=== PATIENT | female | born 1995 | race Caucasian/White ===

== ENCOUNTER → 2019-08-08 07:55 | Outpatient (BNVA) | payer MEDICARE, MEDICAID, SELFPAY | PROVIDERS: Family Provider Family Medicine; PCP Family Medicine; Visit Provider Psychiatry & Neurology Psychiatry | DX: F31.9 Bipolar disorder, unspecified (principal); F39 Unspecified mood [affective] disorder; G47.00 Insomnia, unspecified; E63.9 Nutritional deficiency, unspecified; Z79.899 Other long term (current) drug therapy; F41.1 Generalized anxiety disorder | CPT/HCPCS: 99205 ==

== ENCOUNTER 2019-08-13 08:47 | Outpatient (CLI) | payer MEDICARE, MEDICAID, SELFPAY ==
[2019-08-13 09:16] LABS: Basophils % 0.2 %; Eosinophils # 0.1 10^3/uL (0.0-0.8); Eosinophils % 2.2 %; Hematocrit 35.7 % (37.0-47.0); Hemoglobin 11.4 g/dL (11.5-15.3); Lymphocytes % 45.1 %; Mean Corpuscular HGB Conc 31.9 g/dL (30.0-36.0); Mean Corpuscular Hemoglobin 30.8 pg (28.0-34.0); Mean Corpuscular Volume 96.5 fL (81-99); Mean Platelet Volume 11.1 fL (7.4-10.4); Monocytes # 0.4 10^3/uL (0.2-0.9); Monocytes % 8.1 %; Neutrophils % 44.2 %; Nucleated Red Blood Cells % 0 %; Platelet Count 151 10^3/cmm (130-400); Red Cell Distribution Width 12.5 % (12.1-15.1); White Blood Count 4.5 10^3/uL (4.0-10.0)
[2019-08-13 09:38] LABS: Estmated Average Glucose 105; Hemoglobin A1C 5.3 % (4.0-6.0)
[2019-08-13 09:41] LABS: Alanine Aminotransferase 13 U/L (0-33); Albumin Level 3.6 g/dL (3.5-5.2); Alkaline Phosphatase 50 IU/L (35-105); Anion Gap 11.8 (5-19); Aspartate Amino Transferase 13 U/L (0-32); Blood Urea Nitrogen 8 mg/dL (6-20); Calcium 9.8 mg/dL (8.5-10.5); Carbon Dioxide 25 mmol/L (22-29); Chloride 106 mmol/L (98-107); Chol HDL Ratio 2.15 mg/dL (0.0-4.40); Cholesterol 144 mg/dL (0-200); Free T4 Free Thyroxine 1.33 ng/dL (0.82-1.77); Globulin 2.7 g/dL (1.3-4.6); Glomerular Filtration Rate 89.7 mL/min (90-130); Glucose 83 mg/dL (65-115); HDL Cholesterol 67 mg/dL (60-100); LDL Cholesterol Calculated 59 mg/dL (50-129); LDL HDL Ratio 0.88 RATIO (0.00-3.22); Magnesium 1.9 mg/dL (1.7-2.3); Osmolality Calculated 283 mOsm/kg (285-295); Potassium 3.8 mmol/L (3.5-5.1); Sodium 139 mmol/L (136-145); T3 Free 2.7 PG/ML (2.0-4.4); Thyroid Stimulating Hormone 2.64 uIU/mL (0.27-4.20); Total Bilirubin 0.2 mg/dL (0.15-1.2); Total Protein 6.3 g/dL (6.6-8.7); Triglycerides 92 mg/dL (0-150); Valproic Acid Level 58.8 mcg/mL (50-100)
[2019-08-13 09:48] LABS: Lithium 1.1 mmol/L (0.6-1.2)
[2019-08-13 10:07] LABS: 25 Hydroxy Vitamin D 44 ng/mL (30-100)
[2019-08-13 10:36] LABS: Vitamin B12 521 pg/mL (232-1245)
[2019-08-13 12:05] LABS: Amphetamines Screen Urine Negative (Negative); Barbiturates Screen Urine Negative (Negative); Benzodiazepines Screen Urine Negative (Negative); Cocaine Screen Urine Negative (Negative); Opiate Screen Urine Negative (Negative); PCP Screen Urine Negative (Negative); THC Screen Urine Negative (Negative)
[2019-08-16 18:57] LABS: Copper Level 208 mcg/dL (70-175)
[2019-08-16 22:37] LABS: Zinc Level, Serum or Plasma 48 mcg/dL (60-130)
== END 2019-08-13 08:48 | disposition home or self-care (01) ==
LOC: LAB 08:51
PROVIDERS: Family Provider Family Medicine; PCP Nurse Practitioner Family; Visit Provider Psychiatry & Neurology Psychiatry
DX: E63.9 Nutritional deficiency, unspecified (principal); F31.9 Bipolar disorder, unspecified; Z79.899 Other long term (current) drug therapy; F39 Unspecified mood [affective] disorder
CPT/HCPCS: 36415; 80053; 80061; 80164; 80178; 80306; 82306; 82525; 82607; 82746; 83036; 83735; 84439; 84443; 84481; 84630; 85025

== ENCOUNTER → 2019-08-22 07:54 | Outpatient (BNVA) | payer MEDICARE, MEDICAID, SELFPAY | PROVIDERS: Family Provider Family Medicine; PCP Nurse Practitioner Family; Visit Provider Psychiatry & Neurology Psychiatry | DX: F84.9 Pervasive developmental disorder, unspecified (principal); F34.9 Persistent mood [affective] disorder, unspecified | CPT/HCPCS: 99214 ==

== ENCOUNTER 2019-10-21 19:29 | Emergency (ER) | payer MEDICARE, MEDICAID, SELFPAY ==
[2019-10-21 19:33] VITALS: BP 152/91; PULSE 96; RESP 18; TEMP 37.2; O2SAT 99; BMI 29.0
== END 2019-10-21 20:59 | disposition left against medical advice (07) ==
LOC: ER 20:10
PROVIDERS: Emergency Provider Emergency Medicine; PCP Nurse Practitioner Family
DX: Z53.21 Procedure and treatment not carried out due to patient leaving prior to being seen by health care provider (principal)
CPT/HCPCS: 99281

== ENCOUNTER 2020-02-07 10:34 | Outpatient (RCR) | payer MEDICARE, MEDICAID, SELFPAY | END 2020-02-09 23:59 | disposition home or self-care (01) | LOC: SPT 10:34 | PROVIDERS: PCP Nurse Practitioner Family; Referring Provider Nurse Practitioner Family; Visit Provider Nurse Practitioner Family | DX: M25.552 Pain in left hip (principal) | CPT/HCPCS: 97161 ==

== ENCOUNTER 2020-02-10 06:00 | Outpatient (RCR) | payer MEDICARE, MEDICAID, SELFPAY | END 2020-03-10 23:59 | disposition home or self-care (01) | LOC: SPT 06:00 | PROVIDERS: PCP Nurse Practitioner Family; Referring Provider Nurse Practitioner Family; Visit Provider Nurse Practitioner Family | DX: M25.552 Pain in left hip (principal) | CPT/HCPCS: 97110 ==

== ENCOUNTER 2020-02-19 21:36 | Emergency (ER) | payer MEDICARE, MEDICAID, SELFPAY ==
[2020-02-19 21:47] VITALS: BP 128/85; PULSE 105; RESP 14; TEMP 36.3; O2SAT 98; BMI 28.0
--- NOTE | 2020-02-20 | CTR_ITS ---
PROCEDURE INFORMATION: Exam: CT Head Without Contrast Exam date and time: 02/20/2020 12:01 AM Age: 24 years old Clinical indication: Injury or trauma; Other: Hit head on car door; Blunt trauma (contusions or hematomas); Without loss of consciousness; Dizziness; Additional info: Head injury TECHNIQUE: Imaging protocol: Computed tomography of the head without contrast. Radiation optimization: All CT scans at this facility use at least one of these dose optimization techniques: automated exposure control; mA and/or kV adjustment per patient size (includes targeted exams where dose is matched to clinical indication); or iterative reconstruction. COMPARISON: No relevant prior studies available. RADIATION DOSE METRICS: Total DLP (mGy-cm): 829.7 FINDINGS: Brain: No acute intracranial hemorrhage or mass effect. No definite acute infarct by CT. Cerebral ventricles: Ventricle size is normal for age. Bones/joints: No definite acute skull fracture. Paranasal sinuses: Included paranasal sinuses are essentially clear. Mastoid air cells: No significant acute finding. CT/CT head wo con* [id number] IMPRESSION: 1. No acute intracranial hemorrhage or mass effect. 2. Other findings discussed above. Radiation Dose CTDIVOL = (mGy): DLP = 829.7 (mGy-cm)
[2020-02-20 00:04] VITALS: BP 128/88; PULSE 99; RESP 18; O2SAT 100
--- NOTE | 2020-02-20 00:04 | W.ED.HEATRA ---
HPI - Head Injury General: Chief complaint: Head Injury Stated complaint: hit head, nauseous Time Seen by Provider: 02/20/20 00:00 History of Present Illness: HPI Narrative: Patient is a 24-year-old female comes to the ED after hitting her hand. Patient says injury occurred just prior to arrival. Patient said she hit her head on car door. Denies any loss of consciousness. She felt dizzy and had some nausea afterwards. Now she currently has a headache. Denies any vision changes, weakness to extremities or numbness or tingling to extremities. Associated symptoms: Reports nausea; Deny neck pain or vomiting Review of Systems Const: Denies: fever(s), chills or fatigue Eyes: Denies: change in vision or eye discomfort ENMT: Denies: throat pain, odynophagia, nasal discharge or nasal congestion Card: Denies: chest pain, palpitations, edema, swelling of feet/ankles, dyspnea on exertion or orthopnea Resp: Denies: dyspnea, productive cough or non-productive cough GI: Reports: nausea; Denies: abdominal pain, vomiting, diarrhea, constipation or hematochezia : Denies: flank pain, dysuria or hematuria Musc: Denies: neck pain, back pain or extremity swelling Skin/Breast: Denies: rash or new lesions Neuro: Reports: headache(s); Denies: numbness in extremities or weakness in extremities PFS ED PFSH: Medical History Acne ADHD, predominantly inattentive type Bipolar 1 disorder Huntingtons chorea Insomnia Oppositional defiant disorder of childhood or adolescence Psychotic disorder Social History Current gender identity: Female Female Reproductive History: Date of last menstrual period: 02/19/20 Physical Exam Const: COMMON NORMALS: no acute distress, patient oriented x3 and alert GENERAL APPEARANCE: cooperative and comfortable HENMT: COMMON NORMALS: normocephalic HEAD & SCALP: normocephalic; no Bean's sign and no raccoon eyes FACE & SINUS: normal facial exam and Facial tenderness on exam of face and sinuses on the right periorbital (Mild tenderness above right eyebrow.); no abrasion, no ecchymosis and no erythema MOUTH: Normal oral and palatal mucosa present THROAT: posterior oropharynx normal and uvula midline Eye: COMMON NORMALS: Equal, round and reactive pupils present, EOMs intact bilaterally, conjunctivae normal and normal visual johnson by confrontation PERIORBITAL: periorbital findings normal CONJUNCTIVA: Yes conjunctivae normal PUPIL: Yes Equal, round and reactive pupils present Neck/C-Spine: COMMON NORMALS: supple GENERAL: Yes normal visual inspection Resp: COMMON NORMALS: normal respiratory effort, No retractions, No use of accessory muscles and clear to auscultation bilaterally AUSCULTATION: clear to auscultation bilaterally Cardio: COMMON NORMALS: regular rate, regular rhythm, S1 normal heart sound present, S2 normal heart sound present, No gallops present (Cardio), No clicks present (Cardio), No murmurs present (Cardio) and Peripheral pulses 2+ throughout RATE: regular rate RHYTHM: regular rhythm HEART SOUNDS: S1 normal heart sound present and S2 normal heart sound present PERIPHERAL PULSES: Peripheral pulses 2+ throughout GI: COMMON NORMALS: Normal to inspection, nondistended, normoactive bowel sounds present, Soft to palpation, non-tender and no masses PALPATION: Yes Soft to palpation : COMMON NORMALS: Yes no CVA tenderness BLADDER/KIDNEY EXAM: Yes no CVA tenderness Back/Pelvis: COMMON NORMALS: no CVA tenderness Extremity: COMMON NORMALS: normal to inspection Neuro: COMMON NORMALS: patient oriented x3, CN's II-XII intact bilaterally, moves all extremities, no focal motor deficits and no sensory deficits noted SENSORIUM/ORIENTATION: Yes alert SENSORY EXAM: Yes extremities (intact) MOTOR EXAM: 5/5 motor strength present throughout Skin: GENERAL SKIN EXAM: dry skin Course Vital Signs: Vital signs: Vital Signs Temperature 97.3 F L 02/19/20 21:47 Pulse Rate 99 02/20/20 00:04 Respiratory Rate 18 02/20/20 00:04 Blood Pressure 128/88 02/20/20 00:04 Pulse Oximetry 100 02/20/20 00:04 MDM - Head Injury MDM Narrative: Medical decision making narrative: Patient is a 24-year-old female comes to the ED with headache after she hit her head on a car door. Neuro exam was completely normal. Patient was given 1 g of Tylenol while here in the ED to help with headache. CT of head showed no acute findings. Patient was discharged and told to follow-up with PCP in 7 to 10 days for reevaluation. Return to ED precautions given. Patient understood and agreed with plan. Imaging Data^: CT Head: Attestation: I personally reviewed and interpreted this imaging study as follows: Radiologist's impression: [address] [address] [address] Scan Report Signed Patient: Melinda Rowell Unit #: [id number] : 1995 Age/Sex: 24 / F ADM Date: 02/19/20 Loc: ER Room/Bed: Attending Dr: Ordering Provider/Ordering MD: Julien Lemon Date of Service: 02/20/20 Procedure(s): CT head wo con* [id number] Accession Number(s): [id number] Report Number: [id number] PROCEDURE INFORMATION: Exam: CT Head Without Contrast Exam date and time: 02/20/2020 12:01 AM Age: 24 years old Clinical indication: Injury or trauma; Other: Hit head on car door; Blunt trauma (contusions or hematomas); Without loss of consciousness; Dizziness; Additional info: Head injury TECHNIQUE: Imaging protocol: Computed tomography of the head without contrast. Radiation optimization: All CT scans at this facility use at least one of these dose optimization techniques: automated exposure control; mA and/or kV adjustment per patient size (includes targeted exams where dose is matched to clinical indication); or iterative reconstruction. COMPARISON: No relevant prior studies available. RADIATION DOSE METRICS: Total DLP (mGy-cm): 829.7 FINDINGS: Brain: No acute intracranial hemorrhage or mass effect. No definite acute infarct by CT. Cerebral ventricles: Ventricle size is normal for age. Bones/joints: No definite acute skull fracture. Paranasal sinuses: Included paranasal sinuses are essentially clear. Mastoid air cells: No significant acute finding. CT/CT head wo con* [id number] IMPRESSION: 1. No acute intracranial hemorrhage or mass effect. 2. Other findings discussed above. Radiation Dose CTDIVOL = (mGy): DLP = 829.7 (mGy-cm) Dictated By: Sanjiv Izaguirre MD Signed By: Sanjiv Izaguirre MD Signed Date/Time: 02/20/2046 DD/ Discharge Plan Discharge Patient Disposition: Home Clinical Impression: Minor head trauma Headache Qualifiers: Headache type: post-traumatic Headache chronicity pattern: acute headache Intractability: not intractable Qualified Code(s): G44.319 - Acute post-traumatic headache, not intractable Condition: Stable Prescriptions: No Action loperamide [Imodium A-D] 2 mg capsule 2 mg PO Q6H PRN (Reason: loose stool) Qty: 10 RF: 0 amantadine HCl 100 mg capsule 100 mg PO BID RF: 0 aripiprazole 5 mg tablet 5 mg PO .AM RF: 0 buspirone 5 mg tablet 5 mg PO DAILY RF: 0 clindamycin-benzoyl peroxide 1-5 % gel with pump 1 applic TOPICAL DAILY RF: 0 divalproex 250 mg tablet extended release 24 hr PO QID RF: 0 fluticasone propionate 50 mcg/actuation spray,suspension 2 spray INTRANASAL DAILY RF: 0 acetaminophen 500 mg capsule 1,000 mg PO Q6H PRN (Reason: fever or pain) RF: 0 Januvia 50 mg tablet 50 mg PO .AM RF: 0 levothyroxine 88 mcg capsule 88 mcg PO DAILY RF: 0 lisinopril 10 mg tablet 10 mg PO DAILY RF: 0 lithium carbonate 300 mg capsule 300 mg PO TID RF: 0 ondansetron 4 mg film 4 mg PO Q8H PRN (Reason: nausea and vomiting) RF: 0 quetiapine 400 mg tablet extended release 24 hr 400 mg PO .HS RF: 0 norgestimate-ethinyl estradiol [Tri-Sprintec (28)] 0.18/0.215/0.25 mg-35 mcg (28) tablet 1 tab PO DAILY RF: 0 multivitamin [Tab-A-Raúl] Tablet 1 tab PO QAM RF: 0 levomefolate calcium [L-Methylfolate] 15 mg tablet 15 mg PO DAILY Qty: 30 RF: 2 melatonin 3 mg capsule 6 mg PO .HS RF: 0 Discharge Orders: Discharge Order (Routine); Ordered 02/20/20 Ordered By: Julien Lemon Referrals: Anusha Carlson FNP [Primary Care Provider] - Discharge Diet: Regular Discharge Activity: Resume usual activity Patient Instructions: Headache Activity Restrictions/Additional Instructions: Follow-up with medical provider as directed in 7 to 10 days. Take [id number] Tylenol or ibuprofen for headache. Return to the ER or your medical provider if condition worsens. Please read and understand discharge instructions. If any questions, please ask. Coding Level of Care Code ED Pipe [employer]vers Supervisor for Melvi Pink Exam Comprehensive
== END 2020-02-20 01:05 | disposition home or self-care (01) ==
PROVIDERS: Emergency Provider Physician Assistant; PCP Nurse Practitioner Family
DX: S09.8XXA Other specified injuries of head, initial encounter (principal); G44.319 Acute post-traumatic headache, not intractable; G10 Huntington's disease; W22.09XA Striking against other stationary object, initial encounter
CPT/HCPCS: 12345; 70450; 99281; 99282

== ENCOUNTER 2020-03-11 06:00 | Outpatient (RCR) | payer MEDICARE, MEDICAID, SELFPAY | END 2020-04-10 23:59 | disposition home or self-care (01) | LOC: SPT 06:00 | PROVIDERS: PCP Nurse Practitioner Family; Referring Provider Nurse Practitioner Family; Visit Provider Nurse Practitioner Family | DX: M25.552 Pain in left hip (principal) | CPT/HCPCS: 97110 ==

== ENCOUNTER 2020-06-11 21:59 | Emergency (ER) | payer MEDICARE, MEDICAID, SELFPAY ==
[2020-06-11 22:04] VITALS: BP 140/87; PULSE 92; RESP 18; O2SAT 99; BMI 24.9
--- NOTE | 2020-06-11 22:16 | CTR_ITS ---
PROCEDURE INFORMATION: Exam: CT Head Without Contrast Exam date and time: 06/11/2020 10:20 PM Age: 25 years old Clinical indication: Pain; Visual disturbance; Headache; Additional info: Head injury TECHNIQUE: Imaging protocol: Computed tomography of the head without contrast. Radiation optimization: All CT scans at this facility use at least one of these dose optimization techniques: automated exposure control; mA and/or kV adjustment per patient size (includes targeted exams where dose is matched to clinical indication); or iterative reconstruction. COMPARISON: CT head wo con* [id number] 02/20/2020 12:16 AM RADIATION DOSE METRICS: Total DLP (mGy-cm): 772.7 FINDINGS: Brain: No acute intracranial hemorrhage or mass effect. No definite acute infarct by CT. MRI could be more sensitive/specific for detection, as clinically directed. Cerebral ventricles: Ventricle size is normal for age. Bones/joints: No definite acute skull fracture. Paranasal sinuses: Included paranasal sinuses are essentially clear. Mastoid air cells: No significant acute finding. CT/CT head wo con* [id number] IMPRESSION: 1. No acute intracranial hemorrhage or mass effect. 2. No definite acute infarct by CT, see above. 3. Other findings discussed above. Radiation Dose CTDIVOL = (mGy): DLP = 772.7 (mGy-cm)
--- NOTE | 2020-06-11 22:27 | W.ED.GENADLT ---
HPI - General Adult General: Chief complaint: General Medical Stated complaint: lethargic, blurred vision, body aches Time Seen by Provider: 06/11/20 22:15 Source: patient Mode of arrival: ambulatory Limitations: no limitations History of Present Illness: HPI narrative: 25-year-old female who history of diabetes along with bipolar states she taken all her nighttime medicine tonight and has been having some generalized weakness along with feeling drowsy and having some blurry vision. She denies any focal signs of denies any loss of vision she states her eyelids does feel very heavy and she is having blurriness. Denies any vomiting. Denies any headache. Denies any chest pain. Associated symptoms: Deny chest pain, dyspnea, headache(s), nausea, rash or vomiting Review of Systems Const: Denies: fever(s), chills, body aches or change in appetite Eyes: Reports: change in vision; Denies: blurry vision or eye discomfort ENMT: Denies: throat pain or dental pain Card: Denies: chest pain Resp: Denies: dyspnea GI: Denies: abdominal pain, nausea, vomiting or diarrhea : Denies: dysuria Musc: Denies: neck pain or back pain Skin/Breast: Denies: rash Neuro: Denies: headache(s) Psych: Denies: depression Gabriel/Lymph: Denies: easy bruising All/Imm: Denies: urticaria PFSH ED PFSH: Medical History Acne ADHD, predominantly inattentive type Bipolar 1 disorder Huntingtons chorea Insomnia Oppositional defiant disorder of childhood or adolescence Psychotic disorder Social History Current gender identity: Female Female Reproductive History: Date of last menstrual period: 06/05/20 Physical Exam Const: COMMON NORMALS: no acute distress, patient oriented x3, healthy appearing and alert ORIENTATION/CONSCIOUSNESS: Yes oriented to person, Yes oriented to place and Yes oriented to time HENMT: COMMON NORMALS: normocephalic and atraumatic HEAD & SCALP: normocephalic and atraumatic Eye: COMMON NORMALS: Equal, round and reactive pupils present and EOMs intact bilaterally GENERAL EYE: appearance normal, both eyes and all related structures and normal light reflex VISUAL ACUITY: Yes acuity normal VISUAL CRUM: No peripheral vision loss PUPIL: Yes Equal, round and reactive pupils present DIRECT OPHTHALMOSCOPY: Yes normal light reflex Neck/C-Spine: COMMON NORMALS: full ROM and supple Chest: COMMONS NORMALS: normal inspection of the chest and normal palpation of entire chest wall Resp: COMMON NORMALS: normal respiratory effort, No retractions, No use of accessory muscles and clear to auscultation bilaterally AUSCULTATION: clear to auscultation bilaterally Cardio: COMMON NORMALS: regular rate, regular rhythm and No murmurs present (Cardio) RATE: regular rate RHYTHM: regular rhythm GI: COMMON NORMALS: Normal to inspection, nondistended, normoactive bowel sounds present, Soft to palpation, non-tender and no masses PALPATION: Yes Soft to palpation Extremity: COMMON NORMALS: normal to inspection and full ROM Neuro: COMMON NORMALS: patient oriented x3, moves all extremities and no focal motor deficits SENSORIUM/ORIENTATION: Yes alert, Yes oriented to person, Yes oriented to place and Yes oriented to time CRANIAL NERVES: Yes CN normal except as noted SPEECH: speech normal GAIT: Yes Normal gait present MOTOR EXAM: 5/5 motor strength present throughout OTHER: drowsy Psych: COMMON NORMALS: mental status grossly normal, Normal thought process present and cooperative THOUGHT PROCESS: Normal thought process present Skin: COMMON NORMALS: no rashes or lesions noted and no wounds GENERAL SKIN EXAM: no rashes or lesions noted Course Vital Signs: Vital signs: Vital Signs Pulse Rate 96 06/11/20 23:45 Respiratory Rate 18 06/11/20 23:45 Blood Pressure 131/83 06/11/20 23:45 Pulse Oximetry 97 06/11/20 23:45 MDM - General Adult MDM Narrative: Medical decision making narrative: Melinda presents here with a plan of lethargic and slight blurred vision. Patient's caregiver states she is on multiple meds at night and she is taking all her meds at night. I believe this is more likely a reaction to her medications that she took. She is well-appearing here and her neuro exam shows no focal neuro deficits. Her head CT and blood work are normal. She is stable for discharge informed her caregiver she has any complaints tomorrow they are to return for recheck. Lab Data: Labs: Lab Results 06/11/20 06/11/20 06/11/20 Range/Units 23:30 23:30 23:30 WBC 6.7 (4.0-10.0) 10^3/ uL RBC 3.90 L (4.1-5.3) 10^6/u L Hgb 12.0 (11.5-15.3) g/dL Hct 36.4 L (37.0-47.0) % MCV 93.3 (81-99) fL MCH 30.8 (28.0-34.0) pg MCHC 33.0 (30.0-36.0) g/dL RDW 12.5 (12.1-15.1) % Plt Count 172 (130-400) 10^3/c mm MPV 10.3 (7.4-10.4) fL Neut % (Auto) 44.8 % Lymph % (Auto) 43.7 % [place] % (Auto) 8.9 % Eos % (Auto) 1.7 % Baso % (Auto) 0.6 % Neut # (Auto) 2.99 (1.8-7.7) 10^3/u L Lymph # (Auto) 2.9 (0.8-4.8) 10^3/u L [place] # (Auto) 0.6 (0.2-0.9) 10^3/u L Eos # (Auto) 0.1 (0.0-0.8) 10^3/u L Baso # (Auto) 0.0 (0.0-0.1) 10^3/u L Nucleated RBC % (a uto) 0 % Nucleated RBCs # 0.0 /100WBC Sodium 139 (136-145) mmol/L Potassium 3.7 (3.5-5.1) mmol/L Chloride 107 (98-107) mmol/L Carbon Dioxide 24 (22-29) mmol/L Anion Gap 11.7 (5-19) BUN 8 (6-20) mg/dL Creatinine 0.5 (0.5-0.9) mg/dL GFR Calculation 152.9 H (90-130) mL/min Glucose 77 (65-115) mg/dL POC Glucose (70-110) mg/dL Calculated Osmolal ity 285 (285-295) mOsm/k g Calcium 9.0 (8.5-10.5) mg/dL Total Bilirubin 0.3 (0.15-1.2) mg/dL AST 12 (0-32) U/L ALT 10 (0-33) U/L Alkaline Phosphata se 51 (35-105) IU/L Total Protein 6.0 L (6.6-8.7) g/dL Albumin 3.4 L (3.5-5.2) g/dL Globulin 2.6 (1.3-4.6) g/dL HCG, Qual (Negative) [place] 1.0 (0.6-1.2) mmol/L 06/11/20 06/11/20 Range/Units 23:33 23:40 WBC (4.0-10.0) 10^3/ uL RBC (4.1-5.3) 10^6/u L Hgb (11.5-15.3) g/dL Hct (37.0-47.0) % MCV (81-99) fL MCH (28.0-34.0) pg MCHC (30.0-36.0) g/dL RDW (12.1-15.1) % Plt Count (130-400) 10^3/c mm MPV (7.4-10.4) fL Neut % (Auto) % Lymph % (Auto) % [place] % (Auto) % Eos % (Auto) % Baso % (Auto) % Neut # (Auto) (1.8-7.7) 10^3/u L Lymph # (Auto) (0.8-4.8) 10^3/u L [place] # (Auto) (0.2-0.9) 10^3/u L Eos # (Auto) (0.0-0.8) 10^3/u L Baso # (Auto) (0.0-0.1) 10^3/u L Nucleated RBC % (a uto) % Nucleated RBCs # /100WBC Sodium (136-145) mmol/L Potassium (3.5-5.1) mmol/L Chloride (98-107) mmol/L Carbon Dioxide (22-29) mmol/L Anion Gap (5-19) BUN (6-20) mg/dL Creatinine (0.5-0.9) mg/dL GFR Calculation (90-130) mL/min Glucose (65-115) mg/dL POC Glucose 82 (70-110) mg/dL Calculated Osmolal ity (285-295) mOsm/k g Calcium (8.5-10.5) mg/dL Total Bilirubin (0.15-1.2) mg/dL AST (0-32) U/L ALT (0-33) U/L Alkaline Phosphata se (35-105) IU/L Total Protein (6.6-8.7) g/dL Albumin (3.5-5.2) g/dL Globulin (1.3-4.6) g/dL HCG, Qual Negative (Negative) [place] (0.6-1.2) mmol/L Imaging Data^: CT Head: Attestation: I personally reviewed and interpreted this imaging study as follows: Radiologist's impression: [address] [address] [address] Scan Report Signed Patient: Melinda Rowell Unit #: [id number] : 1995 Age/Sex: 25 / F ADM Date: 06/11/20 Loc: ER Room/Bed: Attending Dr: Ordering Provider/Ordering MD: Tyrese Zhu MD Date of Service: 06/11/20 Procedure(s): CT head wo con* [id number] Accession Number(s): [id number] Report Number: [id number] PROCEDURE INFORMATION: Exam: CT Head Without Contrast Exam date and time: 06/11/2020 10:20 PM Age: 25 years old Clinical indication: Pain; Visual disturbance; Headache; Additional info: Head injury TECHNIQUE: Imaging protocol: Computed tomography of the head without contrast. Radiation optimization: All CT scans at this facility use at least one of these dose optimization techniques: automated exposure control; mA and/or kV adjustment per patient size (includes targeted exams where dose is matched to clinical indication); or iterative reconstruction. COMPARISON: CT head wo con* [id number] 02/20/2020 12:16 AM RADIATION DOSE METRICS: Total DLP (mGy-cm): 772.7 FINDINGS: Brain: No acute intracranial hemorrhage or mass effect. No definite acute infarct by CT. MRI could be more sensitive/specific for detection, as clinically directed. Cerebral ventricles: Ventricle size is normal for age. Bones/joints: No definite acute skull fracture. Paranasal sinuses: Included paranasal sinuses are essentially clear. Mastoid air cells: No significant acute finding. CT/CT head wo con* [id number] IMPRESSION: 1. No acute intracranial hemorrhage or mass effect. 2. No definite acute infarct by CT, see above EKG Data^: EKG 1: Attestation: I personally reviewed and interpreted this EKG as follows: EKG interpretation date: 06/11/20 EKG interpretation time: 22:58 Interpretation: nsr hr [address] or t wave abnormalities qrs 98 qtc 417 Computer generated interpretation: Head CT 06/11/20 22:16 IMPRESSION: 1. No acute intracranial hemorrhage or mass effect. 2. No definite acute infarct by CT, see above. 3. Other findings discussed above. Radiation Dose CTDIVOL = (mGy): DLP = 772.7 (mGy-cm) Discharge Plan Discharge Patient Disposition: Home Clinical Impression: Blurred vision Condition: Stable Prescriptions: No Action loperamide [Imodium A-D] 2 mg capsule 2 mg PO Q6H PRN (Reason: loose stool) Qty: 10 RF: 0 amantadine HCl 100 mg capsule 100 mg PO BID RF: 0 aripiprazole 5 mg tablet 5 mg PO .AM RF: 0 buspirone 5 mg tablet 5 mg PO DAILY RF: 0 clindamycin-benzoyl peroxide 1-5 % gel with pump 1 applic TOPICAL DAILY RF: 0 divalproex 250 mg tablet extended release 24 hr PO QID RF: 0 fluticasone propionate 50 mcg/actuation spray,suspension 2 spray INTRANASAL DAILY RF: 0 acetaminophen 500 mg capsule 1,000 mg PO Q6H PRN (Reason: fever or pain) RF: 0 Januvia 50 mg tablet 50 mg PO .AM RF: 0 levothyroxine 88 mcg capsule 88 mcg PO DAILY RF: 0 lisinopril 10 mg tablet 10 mg PO DAILY RF: 0 lithium carbonate 300 mg capsule 300 mg PO TID RF: 0 ondansetron 4 mg film 4 mg PO Q8H PRN (Reason: nausea and vomiting) RF: 0 quetiapine 400 mg tablet extended release 24 hr 400 mg PO .HS RF: 0 norgestimate-ethinyl estradiol [Tri-Sprintec (28)] 0.18/0.215/0.25 mg-35 mcg (28) tablet 1 tab PO DAILY RF: 0 multivitamin [Tab-A-Raúl] Tablet 1 tab PO QAM RF: 0 levomefolate calcium [L-Methylfolate] 15 mg tablet 15 mg PO DAILY Qty: 30 RF: 2 melatonin 3 mg capsule 6 mg PO .HS RF: 0 Discharge Orders: Discharge ED (Routine); Ordered 06/12/20 Ordered By: Tyrese Zhu Referrals: Anusha Carlson FNP [Primary Care Provider] - 1-3 days Discharge Diet: Advance as tolerated Discharge Activity: Resume usual activity Patient Instructions: Blurred Vision (ED) Coding Level of Care Code ED Painter Touch Up for Chg Fwd Exam Comprehensive
--- NOTE | 2020-06-11 22:51 | ECG_ITS ---
[facility] Test Date: 2020-06-11 Pat Name: Melinda Rowell Department: Room: Gender: Female Leather Grainer: : 1995 Requested By: Tyrese Zhu Order Number: [id number] Josefina MD: Cecy Walton M.D. Measurements Intervals [place] Rate: 93 P: 20 [place]: 158 QRS: 60 QRSD: 98 T: 30 QT: 367 QTc: 456 Interpretive Statements SINUS RHYTHM LOW QRS VOLTAGE IN PRECORDIAL LEADS [QRS DEFLECTION < 1.0 mV IN CHEST LEADS] INCOMPLETE RIGHT BUNDLE BRANCH BLOCK [90+ ms QRS DURATION, TERMINAL R IN V1/V2, 40+ ms S IN I/aVL/V4/V5/V6] No previous ECG available for comparison Electronically Signed On 06-12-2020 22:03:34 HANGER OFF by Cecy Walton M.D. [id number]
--- NOTE | 2020-06-11 23:34 | PC.NURSE ---
Patient blood glucose is 82.
[2020-06-11 23:36] LABS: Glucose Point of Care 82 mg/dL (70-110)
[2020-06-11 23:45] VITALS: BP 131/83; PULSE 96; RESP 18; O2SAT 97
[2020-06-11 23:46] LABS: HCG Qualitative Urine. Negative (Negative)
[2020-06-11 23:47] LABS: Basophils % 0.6 %; Eosinophils # 0.1 10^3/uL (0.0-0.8); Eosinophils % 1.7 %; Hematocrit 36.4 % (37.0-47.0); Lymphocytes # 2.9 10^3/uL (0.8-4.8); Lymphocytes % 43.7 %; Mean Corpuscular Hemoglobin 30.8 pg (28.0-34.0); Mean Corpuscular Volume 93.3 fL (81-99); Mean Platelet Volume 10.3 fL (7.4-10.4); Monocytes # 0.6 10^3/uL (0.2-0.9); Monocytes % 8.9 %; Neutrophils # 2.99 10^3/uL (1.8-7.7); Neutrophils % 44.8 %; Nucleated Red Blood Cells % 0 %; Platelet Count 172 10^3/cmm (130-400); Red Cell Distribution Width 12.5 % (12.1-15.1); White Blood Count 6.7 10^3/uL (4.0-10.0)
[2020-06-12 00:03] LABS: Alanine Aminotransferase 10 U/L (0-33); Albumin Level 3.4 g/dL (3.5-5.2); Alkaline Phosphatase 51 IU/L (35-105); Anion Gap 11.7 (5-19); Aspartate Amino Transferase 12 U/L (0-32); Blood Urea Nitrogen 8 mg/dL (6-20); Carbon Dioxide 24 mmol/L (22-29); Chloride 107 mmol/L (98-107); Creatinine Clr Calc Pharmacy 163.3422; Globulin 2.6 g/dL (1.3-4.6); Glomerular Filtration Rate 152.9 mL/min (90-130); Glucose 77 mg/dL (65-115); Osmolality Calculated 285 mOsm/kg (285-295); Potassium 3.7 mmol/L (3.5-5.1); Sodium 139 mmol/L (136-145); Total Bilirubin 0.3 mg/dL (0.15-1.2)
[2020-06-12 00:37] VITALS: BP 132/80; PULSE 80; RESP 17; O2SAT 98
== END 2020-06-12 00:38 | disposition home or self-care (01) ==
PROVIDERS: Emergency Provider Emergency Medicine; PCP Nurse Practitioner Family
DX: H53.8 Other visual disturbances (principal)
CPT/HCPCS: 36416; 70450; 80053; 80178; 81025; 82962; 85025; 93005; 99283

== ENCOUNTER 2020-07-15 15:44 | Emergency (ER) | payer MEDICARE, MEDICAID, SELFPAY ==
--- NOTE | 2020-07-15 15:57 | ECG_ITS ---
[facility] Test Date: 2020-07-15 Pat Name: Melinda Rowell Department: Room: Gender: Female Chest Pain Coordinator: : 1995 Requested By: Taj Vaca Order Number: [id number] Rocha MD: Ramon Smith M.D. Measurements Intervals [place] Rate: 82 P: 48 [place]: 153 QRS: 67 QRSD: 94 T: 29 QT: 361 QTc: 423 Interpretive Statements SINUS RHYTHM Compared to ECG 06/11/2020 22:58:04 Incomplete right bundle-branch block no longer present Electronically Signed On 07-15-2020 16:57:45 CDT by Ramon Smith M.D. [id number]
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
[2020-07-15 16:17] VITALS: BP 133/96; PULSE 71; RESP 16; TEMP 36.7; O2SAT 97; BMI 32.5
[2020-07-15 16:20] LABS: Basophils % 0.5 %; Eosinophils # 0.1 10^3/uL (0.0-0.8); Eosinophils % 0.8 %; Hematocrit 40.3 % (37.0-47.0); Hemoglobin 12.9 g/dL (11.5-15.3); Lymphocytes # 2.1 10^3/uL (0.8-4.8); Mean Corpuscular Hemoglobin 30.3 pg (28.0-34.0); Mean Corpuscular Volume 94.6 fL (81-99); Mean Platelet Volume 10.5 fL (7.4-10.4); Monocytes # 0.6 10^3/uL (0.2-0.9); Monocytes % 8.1 %; Neutrophils # 4.49 10^3/uL (1.8-7.7); Neutrophils % 61.3 %; Nucleated Red Blood Cells % 0 %; Platelet Count 174 10^3/cmm (130-400); Red Blood Count 4.26 10^6/uL (4.1-5.3); Red Cell Distribution Width 12.3 % (12.1-15.1); White Blood Count 7.3 10^3/uL (4.0-10.0)
[2020-07-15 16:48] LABS: Acetaminophen < 5.0 ug/mL (10-30); Alanine Aminotransferase 11 U/L (0-33); Alcohol Level < 10 mg/dL (0-10); Alkaline Phosphatase 56 IU/L (35-105); Anion Gap 10.8 (5-19); Aspartate Amino Transferase 11 U/L (0-32); Blood Urea Nitrogen 7 mg/dL (6-20); Calcium 9.2 mg/dL (8.5-10.5); Carbon Dioxide 26 mmol/L (22-29); Chloride 103 mmol/L (98-107); Globulin 2.7 g/dL (1.3-4.6); Glomerular Filtration Rate 103.7 mL/min (90-130); Glucose 85 mg/dL (65-115); Osmolality Calculated 279 mOsm/kg (285-295); Potassium 3.8 mmol/L (3.5-5.1); Salicylate < 0.3 mg/dL (3-10); Sodium 136 mmol/L (136-145); Thyroid Stimulating Hormone 2.41 uIU/mL (0.27-4.20); Total Bilirubin 0.3 mg/dL (0.15-1.2); Total Protein 6.7 g/dL (6.6-8.7)
[2020-07-15 16:50] LABS: Add Urine Microscopic? NO; Charge for UA Resulting for Rev
[2020-07-15 17:01] LABS: HCG Qualitative Urine. Negative (Negative)
[2020-07-15 17:07] LABS: Bilirubin Urine Neg (Negative); Blood Urine Neg (Negative); Glucose Urine UA Norm (Normal); Ketones Urine Negative (Negative); Leukocyte Esterase Urine Negative (Negative); Nitrate Urine Negative (Negative); Protein Urine Neg (Negative); Sulfosalicylic Acid Urine Negative (Negative); Urine Appearance Clear (CLEAR); Urine Color Yellow (Yellow); Urobilinogen Urine Norm (Negative); pH Urine 8 (5-7)
[2020-07-15 17:10] LABS: Amphetamines Screen Urine Negative (Negative); Barbiturates Screen Urine Negative (Negative); Benzodiazepines Screen Urine Negative (Negative); Cocaine Screen Urine Negative (Negative); Opiate Screen Urine Negative (Negative); PCP Screen Urine Negative (Negative); THC Screen Urine Negative (Negative)
[2020-07-15 19:32] VITALS: BP 140/92; PULSE 71; RESP 16; TEMP 36.7; O2SAT 98
[2020-07-15 19:59] LABS: Valproic Acid Level 61.9 ug/mL (50-100)
== END 2020-07-15 19:33 | disposition home or self-care (01) ==
PROVIDERS: Emergency Provider Emergency Medicine; PCP Nurse Practitioner Family
DX: F31.9 Bipolar disorder, unspecified (principal); R45.1 Restlessness and agitation; G10 Huntington's disease; Z79.899 Other long term (current) drug therapy
CPT/HCPCS: 36415; 80053; 80164; 80178; 80306; 80307; 81003; 81025; 84443; 85025; 93005; 99284

== ENCOUNTER 2020-08-27 20:39 | Emergency (ER) | payer MEDICARE, MEDICAID, SELFPAY ==
[2020-08-27 20:40] VITALS: BP 144/79; PULSE 103; RESP 16; TEMP 36.6; O2SAT 100
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
[2020-08-27 21:41] VITALS: RESP 17; O2SAT 97
[2020-08-27] MEDS: oxyCODONE-APAP 5-325 mg Tablet 1 TAB PO (21:41)
[2020-08-27] MEDS: ondansetron 4 MG Tablet PO (22:20)
== END 2020-08-27 22:42 | disposition home or self-care (01) ==
PROVIDERS: Emergency Provider Emergency Medicine; PCP Nurse Practitioner Family
DX: S42.021A Displaced fracture of shaft of right clavicle, initial encounter for closed fracture (principal); G10 Huntington's disease; Y30.XXXA Falling, jumping or pushed from a high place, undetermined intent, initial encounter
CPT/HCPCS: 73030; 99283; Q0162

== ENCOUNTER → 2020-09-03 13:44 | Outpatient (BNVA) | payer MEDICARE, MEDICAID, SELFPAY | PROVIDERS: PCP Nurse Practitioner Family; Referring Provider Nurse Practitioner Family; Visit Provider Specialist | DX: S42.021A Displaced fracture of shaft of right clavicle, initial encounter for closed fracture (principal); X58.XXXA Exposure to other specified factors, initial encounter | CPT/HCPCS: 73000 ==

== ENCOUNTER 2020-09-03 17:23 | Outpatient (CLI) | payer MEDICARE, MEDICAID, SELFPAY | END 2020-09-03 17:24 | disposition home or self-care (01) | LOC: SPT 17:25 | PROVIDERS: PCP Nurse Practitioner Family; Visit Provider Specialist | DX: Z46.89 Encounter for fitting and adjustment of other specified devices (principal); M25.552 Pain in left hip | CPT/HCPCS: 97760; L3650 ==

== ENCOUNTER → 2020-09-24 14:19 | Outpatient (BNVA) | payer MEDICARE, MEDICAID, SELFPAY | PROVIDERS: PCP Nurse Practitioner Family; Visit Provider Specialist | DX: S42.021A Displaced fracture of shaft of right clavicle, initial encounter for closed fracture (principal); S42.024A Nondisplaced fracture of shaft of right clavicle, initial encounter for closed fracture | CPT/HCPCS: 73000 ==

== ENCOUNTER 2020-09-27 12:53 | Emergency (ER) | payer MEDICARE, MEDICAID, SELFPAY ==
[2020-09-27 13:18] VITALS: BP 146/89; PULSE 81; RESP 16; TEMP 37.3; O2SAT 98; BMI 30.9
[2020-09-27 13:21] VITALS: BP 146/89; PULSE 103; RESP 18; O2SAT 98
--- NOTE | 2020-09-27 13:33 | W.ED.SKABFB ---
HPI - Skin/Abscess/Foreign Bdy General: Chief complaint: Skin/Abscess/Foreign Body Stated complaint: laceration on lip Time Seen by Provider: 09/27/20 13:27 History of Present Illness: HPI narrative: Patient place piercings on the lower lip area on each side earlier today and they try to remove them but the lip was swelled and is able to get to him. 1 on the right they went in cut trying it thinking that would get it out but lip is still swelling cannot reach the back of the piercing. complaint: foreign body Onset (ago): hour(s) Tetanus up to date: unsure Associated symptoms: Deny chills or fever(s) Review of Systems Const: Denies: fever(s) or chills Musc: Denies: neck pain Skin/Breast: Reports: other (Has 2 piercings that they cannot remove in the lower lip that were placed e) [facility] ED PFSH: Medical History Acne ADHD, predominantly inattentive type Bipolar 1 disorder Huntingtons chorea Insomnia Oppositional defiant disorder of childhood or adolescence Psychotic disorder Social History Current gender identity: Female Female Reproductive History: Date of last menstrual period: 08/04/20 Physical Exam Const: COMMON NORMALS: no acute distress Psych: COMMON NORMALS: mental status grossly normal Skin: OTHER: Has piercing left side the mouth and on the right side of the mouth. These are in the lower lip area below the lip. The one on the left is still intact but swelling is around it cannot reach the back the piercing. The one the right they cut the front off and stem is still and but cannot reach the back because of the swelling. Course Vital Signs: Vital signs: Vital Signs Temperature 99.1 F 09/27/20 13:18 Pulse Rate 81 09/27/20 13:18 Respiratory Rate 16 09/27/20 13:18 Blood Pressure 146/89 09/27/20 13:18 Pulse Oximetry 98 09/27/20 13:18 MDM - Skin/Abscess/Foreign Bdy MDM Narrative: Medical decision making narrative: Patient was instructed use ice to help reduce swelling swelling get to the back the piercings remove them. They are to follow-up if no significant improvement with that. Discharge Plan Discharge Patient Disposition: Home Clinical Impression: Inflammation associated with voluntary body piercing Condition: Stable Prescriptions: No Action (DME) CLAVICLE STRAP See Rx Instructions .Route .MEDSUPPLY Qty: 1 RF: 0 amantadine HCl 100 mg capsule 100 mg PO BID@ RF: 0 buspirone 5 mg tablet 5 mg PO TID@ RF: 0 clindamycin-benzoyl peroxide 1-5 % gel with pump 1 applic TOPICAL DAILY RF: 0 divalproex 250 mg tablet extended release 24 hr 250 mg PO TID@, RF: 0 acetaminophen 500 mg capsule 1,000 mg PO Q6H PRN (Reason: fever or pain) RF: 0 Januvia 50 mg tablet 50 mg PO DAILY@08 RF: 0 levothyroxine 88 mcg capsule 88 mcg PO DAILY@07 RF: 0 lithium carbonate 300 mg capsule 300 mg PO TID@ RF: 0 ondansetron 4 mg film 4 mg PO Q8H PRN (Reason: nausea and vomiting) RF: 0 norgestimate-ethinyl estradiol [Tri-Sprintec (28)] 0.18/0.215/0.25 mg-35 mcg (28) tablet 1 tab PO DAILY@1999 RF: 0 multivitamin Tablet 1 tab PO DAILY@1999 RF: 0 dicyclomine 20 mg tablet 20 mg PO TID@ RF: 0 Banophen 25 mg capsule 25 mg PO BEDTIME@1999 RF: 0 ibuprofen 200 mg Tablet 200 mg PO Q6H PRN (Reason: Pain) RF: 0 aripiprazole 10 mg tablet 10 mg PO DAILY@1999 RF: 0 quetiapine 300 mg tablet extended release 24 hr 300 mg PO DAILY@1999 RF: 0 melatonin 5 mg tablet 10 mg PO BEDTIME@1999 RF: 0 hydrocodone-acetaminophen 5-325 mg tablet 1 tab PO Q6H PRN (Reason: pain) Qty: 20 RF: 0 Discharge Orders: Discharge ED (Routine); Ordered 09/27/20 Ordered By: Fili Randle Referrals: Anusha Carlson, COMPOSITION MIXER [Primary Care Provider] - Patient Instructions: Opioid Safety Activity Restrictions/Additional Instructions: Go home apply ice inside of mouth and outside of mouth every little while to help swelling go down then remove piercings. If unable to remove piercings after 2448 hrs. return to see your primary care provider return here. Coding Level of Care Code ED Long Term Acute Care Registered Nurse for Melvi Pink
== END 2020-09-27 13:42 | disposition home or self-care (01) ==
PROVIDERS: Emergency Provider Nurse Practitioner Family; PCP Nurse Practitioner Family
DX: K13.0 Diseases of lips (principal)
CPT/HCPCS: 99281

== ENCOUNTER 2020-10-19 17:39 | Emergency (ER) | payer MEDICARE, MEDICAID, SELFPAY ==
[2020-10-19 17:47] VITALS: BP 159/110; PULSE 110; RESP 18; TEMP 36.8; O2SAT 98; BMI 30.9
--- NOTE | 2020-10-19 18:57 | PC.NURSE ---
care transferred to this nurse at [id number]
--- NOTE | 2020-10-19 19:26 | ECG_ITS ---
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 Measurements Intervals [place] Rate: 97 P: 48 AK: 144 QRS: 77 QRSD: 84 T: 43 QT: 328 QTc: 417 Interpretive Statements SINUS RHYTHM POSSIBLE LEFT ATRIAL ENLARGEMENT [-0.1mV P WAVE IN V1/V2] POSSIBLE RIGHT VENTRICULAR CONDUCTION DELAY [RSR (QR) IN V1/V2] Compared to ECG 07/15/2020 16:41:39 No significant changes Electronically Signed On 10-20-2020 18:10:50 CDT by Ramon Smith M.D. [id number]
[2020-10-19] MEDS: tetanus-dipt-pertussis 0.5 mL SDV IM (19:35)
--- NOTE | 2020-10-19 20:45 | ED_ITS ---
HPI - Psych General: Chief Complaint: Psychiatric Symptoms Stated Complaint: SELF HARM Time Seen by Provider: 10/19/20 18:47 History of Present Illness: HPI Narrative: 25-year-old female who lives in a senior living environment. She evidently was not getting the attention she wanted earlier today in that setting, so she broke a piece of porcelain furniture, and cut her forearm with a piece of it. She says that she just wanted attention, and wanted the pain to go away . She denies suicidality or homicidality. complaint: other Onset (ago): hour(s) Duration: changing over time History of same: Yes Relieving factors: none Exacerbating factors: none Associated psychiatric symptoms: depression Associated symptoms: Deny auditory hallucinations, visual hallucinations, homicidal ideation or suicidal ideation If self harm: admits thoughts of self harm and has acted on plan Review of Systems Const: Denies: fever(s) or chills Card: Denies: chest pain or palpitations Resp: Denies: dyspnea, productive cough or non-productive cough : Denies: flank pain Neuro: Denies: headache(s) Psych: Denies: visual hallucinations, auditory hallucinations, suicidal ideation or homicidal ideation PFSH ED PFSH: Medical History Acne ADHD, predominantly inattentive type Bipolar 1 disorder Huntingtons chorea Insomnia Oppositional defiant disorder of childhood or adolescence Psychotic disorder Social History Current gender identity: Female Female Reproductive History: Date of last menstrual period: 08/04/20 Physical Exam Const: COMMON NORMALS: no acute distress, patient oriented x3 and alert Eye: COMMON NORMALS: Equal, round and reactive pupils present and EOMs intact bilaterally PUPIL: Yes Equal, round and reactive pupils present Chest: COMMONS NORMALS: normal inspection of the chest Resp: COMMON NORMALS: normal respiratory effort, No use of accessory muscles and clear to auscultation bilaterally AUSCULTATION: clear to auscultation bilaterally Cardio: COMMON NORMALS: regular rate and regular rhythm RATE: regular rate RHYTHM: regular rhythm Extremity: NARRATIVE EXTREMITY EXAM: Superficial laceration of the left forearm measuring 4 inches. Bleeding controlled. Neuro: COMMON NORMALS: patient oriented x3 SENSORIUM/ORIENTATION: Yes alert Course Vital Signs: Vital signs: Vital Signs Temperature 98.3 F 10/19/20 17:47 Pulse Rate 97 10/19/20 21:59 Respiratory Rate 18 10/19/20 21:59 Blood Pressure 166/94 10/19/20 21:59 Pulse Oximetry 97 10/19/20 21:59 MDM - Psych MDM Narrative: Medical decision making narrative: Patient denies suicidality. She is cooperative. Superficial laceration to the forearm is repaired with Steri-Strips and glue. Bleeding is controlled. Tetanus is given. Discharge Plan Discharge Patient Disposition: Home Clinical Impression: Laceration Condition: Stable Prescriptions: No Action (DME) CLAVICLE STRAP See Rx Instructions .Route .MEDSUPPLY Qty: 1 RF: 0 amantadine HCl 100 mg capsule 100 mg PO BID@ RF: 0 buspirone 5 mg tablet 5 mg PO TID@ RF: 0 clindamycin-benzoyl peroxide 1-5 % gel with pump 1 applic TOPICAL DAILY RF: 0 divalproex 250 mg tablet extended release 24 hr 250 mg PO TID@ RF: 0 acetaminophen 500 mg capsule 1,000 mg PO Q6H PRN (Reason: fever or pain) RF: 0 Januvia 50 mg tablet 50 mg PO DAILY@799 RF: 0 levothyroxine 88 mcg capsule 88 mcg PO DAILY@699 RF: 0 lithium carbonate 300 mg capsule 300 mg PO TID@ RF: 0 ondansetron 4 mg film 4 mg PO Q8H PRN (Reason: nausea and vomiting) RF: 0 norgestimate-ethinyl estradiol [Tri-Sprintec (28)] 0.18/0.215/0.25 mg-35 mcg (28) tablet 1 tab PO DAILY@1999 RF: 0 multivitamin Tablet 1 tab PO DAILY@1999 RF: 0 dicyclomine 20 mg tablet 20 mg PO TID@ RF: 0 Banophen 25 mg capsule 25 mg PO BEDTIME@1999 RF: 0 ibuprofen 200 mg Tablet 200 mg PO Q6H PRN (Reason: Pain) RF: 0 aripiprazole 10 mg tablet 10 mg PO DAILY@1999 RF: 0 quetiapine 300 mg tablet extended release 24 hr 300 mg PO DAILY@1999 RF: 0 melatonin 5 mg tablet 10 mg PO BEDTIME@1999 RF: 0 hydrocodone-acetaminophen 5-325 mg tablet 1 tab PO Q6H PRN (Reason: pain) Qty: 20 RF: 0 Discharge Orders: Discharge ED (Routine); Ordered 10/19/20 Ordered By: Kulwinder Alarcon Referrals: Anusha Carlson FNP [Primary Care Provider] - 4-7 days Discharge Diet: Advance as tolerated Discharge Activity: Limit activity as instructed Patient Instructions: Laceration (ED) Activity Restrictions/Additional Instructions: Keep wound dry for 48 hours, then may wash with soap and running water. Do not soak. See your doctor in 7 days for wound check. If Steri-Strips begin to peel, trim them with scissors to skin edge. Coding Level of Care Code ED Photo Retoucher for Zorang Fwd Exam Detailed
[2020-10-19 21:59] VITALS: BP 166/94; PULSE 97; RESP 18; O2SAT 97
[2020-10-20 14:09] LABS: Glucose Point of Care 141 mg/dL (70-110)
== END 2020-10-19 22:02 | disposition home or self-care (01) ==
PROVIDERS: Emergency Provider Emergency Medicine; PCP Nurse Practitioner Family
DX: S51.812A Laceration without foreign body of left forearm, initial encounter (principal); X78.0XXA Intentional self-harm by sharp glass, initial encounter; Z23 Encounter for immunization
CPT/HCPCS: 12004; 36416; 82962; 90471; 90715; 93005; 99284

== ENCOUNTER 2020-10-26 03:49 | Emergency (ER) | payer MEDICARE, MEDICAID, SELFPAY ==
[2020-10-26 03:57] VITALS: BP 140/92; PULSE 96; RESP 16; TEMP 36.7; O2SAT 99; BMI 30.9
[2020-10-26 06:01] VITALS: BP 142/79; PULSE 86; RESP 18; TEMP 36.8; O2SAT 95
[2020-10-26] MEDS: ketorolac 10 mg Tablet PO (06:13)
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
== END 2020-10-26 06:19 | disposition home or self-care (01) ==
PROVIDERS: Emergency Provider Emergency Medicine; PCP Nurse Practitioner Family
DX: S30.814A Abrasion of vagina and vulva, initial encounter (principal); X58.XXXA Exposure to other specified factors, initial encounter; Y93.89 Activity, other specified
CPT/HCPCS: 96361; 96374; 99283

== ENCOUNTER 2020-10-27 07:31 | Outpatient (CLI) | payer MEDICARE, MEDICAID, SELFPAY ==
--- NOTE | 2020-10-27 07:41 | US_ITS ---
WS: [id number] ULTRASOUND BREAST BILATERAL TECHNIQUE: Ultrasound bilateral breast focused area of concern. CLINICAL INFORMATION: NIPPLE DISCHARGE COMPARISON: None. FINDINGS: Ultrasound bilateral breasts at the areola. Mild ductal ectasia deep to both areola. No visualized in traductal lesions. This has a benign appearance. No cystic or solid lesions to target for biopsy. No suspicious findings. IMPRESSION: BI-RADS 2 benign Recommend annual screening mammography age 40
== END 2020-10-27 07:32 | disposition home or self-care (01) ==
LOC: RAD 07:36
PROVIDERS: PCP Nurse Practitioner Family; Visit Provider Nurse Practitioner Family
DX: N64.52 Nipple discharge (principal)
CPT/HCPCS: 73000; 76642

== ENCOUNTER 2020-11-28 17:49 | Emergency (ER) | payer MEDICARE, MEDICAID, SELFPAY ==
[2020-11-28 18:08] VITALS: BP 154/101; PULSE 111; RESP 19; TEMP 37.1; O2SAT 96
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
[2020-11-28 18:50] VITALS: RESP 19; TEMP 37.1; O2SAT 96
== END 2020-11-28 18:51 | disposition home or self-care (01) ==
PROVIDERS: Emergency Provider Nurse Practitioner Family; PCP Nurse Practitioner Family
DX: S91.104A Unspecified open wound of right lesser toe(s) without damage to nail, initial encounter (principal); W20.8XXA Other cause of strike by thrown, projected or falling object, initial encounter
CPT/HCPCS: 99281

== ENCOUNTER → 2020-12-02 13:26 | Outpatient (BNVA) | payer MEDICARE, MEDICAID, SELFPAY | PROVIDERS: PCP Nurse Practitioner Family; Visit Provider Obstetrics & Gynecology | DX: Z72.51 High risk heterosexual behavior (principal); N93.9 Abnormal uterine and vaginal bleeding, unspecified | CPT/HCPCS: 81025; 84146; 84443; 84702; 85025 ==

== ENCOUNTER → 2020-12-10 15:56 | Outpatient (BNVA) | payer MEDICARE, MEDICAID, SELFPAY | PROVIDERS: PCP Nurse Practitioner Family; Visit Provider Specialist | DX: S42.024A Nondisplaced fracture of shaft of right clavicle, initial encounter for closed fracture (principal) | CPT/HCPCS: 73000 ==

== ENCOUNTER → 2020-12-11 14:16 | Outpatient (BNVA) | payer MEDICARE, MEDICAID, SELFPAY | PROVIDERS: PCP Nurse Practitioner Family; Visit Provider Obstetrics & Gynecology | DX: N93.9 Abnormal uterine and vaginal bleeding, unspecified (principal) | CPT/HCPCS: 76830; 84146 ==

== ENCOUNTER → 2021-01-30 10:08 | Outpatient (BNVA) | payer MEDICARE, MEDICAID, SELFPAY | PROVIDERS: PCP Nurse Practitioner Family; Visit Provider Obstetrics & Gynecology | DX: N84.0 Polyp of corpus uteri (principal); N93.9 Abnormal uterine and vaginal bleeding, unspecified | CPT/HCPCS: 87635 ==

== ENCOUNTER 2021-02-04 08:05 | Day surgery (SDC) | payer MEDICARE, MEDICAID, SELFPAY ==
[2021-02-02 12:07] VITALS: BMI 34.1
[2021-02-02 12:21] LABS: OR HCG Qualitative Urine Negative (Negative)
--- NOTE | 2021-02-02 12:54 | ANES.PREANE2 ---
Pre-Anesthetic Assessment Pre-Anesthetic Assessment: Height/Weight: Height 1.65 m Weight 92.986 kg Preop Diagnosis: Abnormal uterine bleeding due to endometrial polyp, endometrial polyp Proposed Procedure: Operation Date: 02/04/21 09:40 Proposed Procedures p Hysteroscopy with polpectomy 45385 N93.9 N84.0(Not Applicable) - Vadim Silverman MD s Dilation And Curettage (D&C)(Not Applicable) - Vadim Silverman MD Was Beta Poly taken within 24 hours: N/A Was Clonidine taken within 24 hours: N/A Social: Social History: No tobacco Exam: Pre-Anes Outpt Exam: alert, oriented x 3, clear to auscultation bilaterally and regular rate & rhythm Airway: Submandibular: WNL Cervical ROM: WNL MP: 2 History/ROS: No significant complaints Neuropsych: Neuropsych: Anxiety and Bipolar Anesthetic Plan: ASA status: 2 Anesthesia: Anesthesia Evaluation and General Risk of > 500 ml blood loss (7ml/kg in children): No PFSH Anesthesia PFSH: Medical History Acne ADHD, predominantly inattentive type Bipolar 1 disorder Huntingtons chorea Insomnia Oppositional defiant disorder of childhood or adolescence Psychotic disorder Family History Grandmother Diabetes maternal Breast cancer Grandfather Diabetes maternal Denies family history of Colon cancer Ovarian cancer Clotting disorder Bleeding disorder Hypertension Uterine cancer Thyroid disease Stroke Social History Smoking and tobacco status: never smoked Alcohol intake: never Substance/Drug Use: never Current gender identity: Female Female Reproductive History: Date of last menstrual period: 01/23/21 Data Anesthesia Other Labs: Laboratory Results - last 48 hr 02/02/21 11:56 Urine HCG, Qual Negative Cardiac Studies: No Data to Display
[2021-02-02 14:23] LABS: Add Urine Microscopic? NO; Charge for UA Resulting for Rev
[2021-02-02 14:26] LABS: Basophils % 0.5 %; Eosinophils # 0.1 10^3/uL (0.0-0.8); Eosinophils % 1.5 %; Hematocrit 36.6 % (37.0-47.0); Hemoglobin 11.8 g/dL (11.5-15.3); Lymphocytes # 1.7 10^3/uL (0.8-4.8); Lymphocytes % 27.4 %; Mean Corpuscular HGB Conc 32.2 g/dL (30.0-36.0); Mean Corpuscular Hemoglobin 30.3 pg (28.0-34.0); Mean Corpuscular Volume 93.8 fl (81-99); Mean Platelet Volume 11.3 fL (7.4-10.4); Monocytes # 0.5 10^3/uL (0.2-0.9); Monocytes % 8.7 %; Neutrophils # 3.81 10^3/uL (1.8-7.7); Neutrophils % 61.4 %; Nucleated Red Blood Cells % 0 %; Platelet Count 185 10^3/cmm (130-400); Red Cell Distribution Width 12.3 % (12.1-15.1); White Blood Count 6.2 10^3/uL (4.0-10.0)
[2021-02-02 14:35] LABS: Bilirubin Urine Neg (Negative); Blood Urine Neg (Negative); Glucose Urine UA Norm (Normal); Ketones Urine Negative (Negative); Leukocyte Esterase Urine Negative (Negative); Nitrate Urine Negative (Negative); Protein Urine Neg (Negative); Urine Appearance Clear (CLEAR); Urine Color Yellow (Yellow); Urobilinogen Urine Norm (Negative); pH Urine 7 (5-7)
[2021-02-02 14:43] LABS: Anion Gap 14.3 (5-19); Blood Urea Nitrogen 9 mg/dL (6-20); Calcium 9.1 mg/dL (8.5-10.5); Carbon Dioxide 25 mmol/L (22-29); Chloride 102 mmol/L (98-107); Glomerular Filtration Rate 152.9 mL/min (90-130); Glucose 203 mg/dL (65-115); Osmolality Calculated 288 mOsm/kg (285-295); Potassium 4.3 mmol/L (3.5-5.1); Sodium 137 mmol/L (136-145)
[2021-02-04 08:32] VITALS: BP 127/82; PULSE 92; RESP 18; TEMP 36.3; O2SAT 97
--- NOTE | 2021-02-04 08:48 | P.ANESUD_ITS ---
Pre-Anesthetic Update Pre-Anesthetic Assessment: Date of Surgery/Procedure: 02/04/21 Preop Paulina gnosis: Abnormal uterine bleeding due to endometrial polyp, endometrial polyp Proposed Procedure: Operation Date: 02/04/21 09:40 Proposed Procedures p Hysteroscopy with polpectomy 27513 N93.9 N84.0(Not Applicable) - Vadim Silverman MD s Dilation And Curettage (D&C)(Not Applicable) - Vadim Silverman MD Any changes to Pre-Anesthetic Assessment?: No Last Intake: Intake Last Liquid Date 02/03/21 Last Liquid Time 22:00 Last Solid Date 02/03/21 Last Solid Time 19:00 Labs Last 48hrs: Laboratory Results - last 48 hr 02/02/21 02/02/21 02/02/21 11:56 12:15 12:20 WBC RBC Hgb Hct MCV MCH MCHC RDW Plt Count MPV Neut % (Auto) Lymph % (Auto) [place] % (Auto) Eos % (Auto) Baso % (Auto) Neut # (Auto) Lymph # (Auto) [place] # (Auto) Eos # (Auto) Baso # (Auto) Nucleated RBC % (a uto) Nucleated RBCs # Sodium Potassium Chloride Carbon Dioxide Anion Gap BUN Creatinine GFR Calculation Glucose Calculated Osmolal ity Calcium Urine Color Yellow Urine Appearance Clear Urine pH 7 Ur Specific Gravit y 1.000 L Urine Protein Neg Urine Glucose (UA) Norm Urine Ketones Negative Urine Blood Neg Urine Nitrate Negative Urine Bilirubin Neg Urine Urobilinogen Norm Ur Leukocyte Shaniqua ase Negative Urine HCG, Qual Negative Blood Type A Negative Rho(D) Type Negative Antibody Screen Negative 02/02/21 02/02/21 12:20 12:20 WBC 6.2 RBC 3.90 L Hgb 11.8 Hct 36.6 L MCV 93.8 MCH 30.3 MCHC 32.2 RDW 12.3 Plt Count 185 MPV 11.3 H Neut % (Auto) 61.4 Lymph % (Auto) 27.4 [place] % (Auto) 8.7 Eos % (Auto) 1.5 Baso % (Auto) 0.5 Neut # (Auto) 3.81 Lymph # (Auto) 1.7 [place] # (Auto) 0.5 Eos # (Auto) 0.1 Baso # (Auto) 0.0 Nucleated RBC % (a uto) 0 Nucleated RBCs # 0.0 Sodium 137 Potassium 4.3 Chloride 102 Carbon Dioxide 25 Anion Gap 14.3 BUN 9 Creatinine 0.5 GFR Calculation 152.9 H Glucose 203 H Calculated Osmolal ity 288 Calcium 9.1 Urine Color Urine Appearance Urine pH Ur Specific Gravit y Urine Protein Urine Glucose (UA) Urine Ketones Urine Blood Urine Nitrate Urine Bilirubin Urine Urobilinogen Ur Leukocyte Shaniqua ase Urine HCG, Qual Blood Type Rho(D) Type Antibody Screen Vitals: Temperature 97.4 F L 02/04/21 08:32 Temperature Source Temporal Artery S can 02/04/21 08:32 Pulse Rate 92 02/04/21 08:32 Respiratory Rate 18 02/04/21 08:32 Blood Pressure 127/82 02/04/21 08:32 Blood Pressure [place] n 97 02/04/21 08:32 Pulse Oximetry 97 02/04/21 08:32 Oxygen Delivery Me thod 02/04/21 08:32 Exam: Pre-Anes Outpt Exam: alert, oriented x 3, clear to auscultation bilaterally and regular rate & rhythm Cardiac Studies: No Data to Display
[2021-02-04 08:54] LABS: Glucose Point of Care 111 mg/dL (70-110)
[2021-02-04] MEDS: scopolamine 1.5 Patch 1 PATCH TRANSDERMA (08:55)
[2021-02-04] MEDS: sodium chloride 0.9% 500 ML IV (08:57)
--- NOTE | 2021-02-04 09:15 | W.PM.OPSUD ---
Surgery/Procedure H&P Update DATE OF PROCEDURE: February 04, 2021 DATE H&P PERFORMED: 02/02/21 H&P UPDATE INFORMATION: I have reviewed H&P completed within last 30 days, I have examined patient prior to procedure and No changes to prior documentation PREOP DIAGNOSIS: Abnormal uterine bleeding due to endometrial polyp, endometrial polyp PLANNED PROCEDURE: Operation Date: 02/04/21 09:40 Proposed Procedures p Hysteroscopy with polpectomy 25384 N93.9 N84.0(Not Applicable) - Vadim Silverman MD s Dilation And Curettage (D&C)(Not Applicable) - Vadim Silverman MD
[2021-02-04] MEDS: sodium chloride 0.9% 1,000 ML 30 ML IV (09:21)
[2021-02-04] MEDS: midazolam 1 mg/mL INJ 2 mL 2 MG IVP (09:22)
--- NOTE | 2021-02-04 10:08 | PM.OP ---
Operative Report Date of procedure: February 04, 2021 Pre-op Diagnosis: Abnormal uterine bleeding due to endometrial polyp, endometrial polyp Post-op diagnosis: same Post-op Findings: Endometrial polyp. Irregular proliferative endometrium Procedure Done: Hysteroscopic polypectomy and curettage via MyoSure Specimens removed/disposition: Endometrium curettings and polyp Surgeon: Vadim Silverman MD Anesthesia: General IV fluids (mL): 800 Urine output (mL): 100 Complications: None Findings: Irregular endometrium Condition: stable Disposition: PACU Procedure: After informed consent, the risks included but were not limited to bleeding, infection, injury to internal organs. The patient was counseled on a possible laparotomy and on the potential need for hysterectomy. The patient expressed understanding of the risks involved, all questions were answered, and the patient consented to the procedure. The patient was taken to the operating room where general anesthesia was administered. She was placed in the dorsal lithotomy position and prepped and draped in sterile fashion. A time out procedure was performed. The patient was examined under anesthesia and found to have a normal uterus with normal adnexa. A sterile weight speculum was placed in the vagina. The uterus was then gently sounded to 7 cm, and the cervix was dilated. The 0 degrees MyoSure hysteroscope was advanced gently to the uterine fundus while visualizing the monitor. Survey of the uterine cavity showed: Small anterior wall polyp and irregular endometrium, the fundus shows irregular proliferative endometrium; left ostium was visualized, and lateral wall with irregular endometrium; right ostium visualized, and lateral wall with irregular endometrium; anterior and posterior sarkar are with proliferative irregular endometrium; endocervical canal is normal. The MyoSure device was advanced and the direct visualization the polyp and endometrium was morcellated without complication. At the end of morcellation the fluid deficit was 415 mL and was estimated at approximately 200 mL were on the floor. There was minimal bleeding noted and the tenaculum removed with goad hemostasis noted. The patient tolerated the procedure well. The patient was taken to the recovery area in stable condition.
[2021-02-04 10:15] VITALS: BP 133/70; PULSE 68; RESP 16; TEMP 36.2; O2SAT 98
[2021-02-04 10:20] VITALS: BP 136/81; PULSE 107; RESP 16; TEMP 36.3; O2SAT 98
[2021-02-04 10:26] VITALS: BP 136/68; PULSE 103; RESP 18; TEMP 36.6; O2SAT 99
[2021-02-04 10:54] VITALS: BP 133/77; PULSE 100; RESP 18; TEMP 36.6; O2SAT 97
--- NOTE | 2021-02-04 15:47 | ANE.PACU2 ---
Inpatient post-anesthesia follow up: Airway intact: Yes Vital signs: Temperature 97.8 F Pulse Rate 100 Respiratory Rate 18 Blood Pressure 133/77 Pulse Oximetry 97 Oxygen Delivery Me thod Room Air Oxygen Flow Rate Fraction of Inspir ed Oxygen Hydration adequate: Yes Nausea and vomiting: No Pain level: 2 Mental status: Baseline
== END 2021-02-04 10:56 | disposition home or self-care (01) ==
PROVIDERS: PCP Nurse Practitioner Family; Visit Provider Obstetrics & Gynecology
PROC: (CPT 58120; 2021-02-04 09:40)
PROC: 0UDB8ZZ Extraction of Endometrium, Via Natural or Artificial Opening Endoscopic (ICD-10-PCS; CPT 58558; 2021-02-04 09:40)
DX: N93.9 Abnormal uterine and vaginal bleeding, unspecified (principal); N84.0 Polyp of corpus uteri; Z79.899 Other long term (current) drug therapy
CPT/HCPCS: 58558; 36415; 36416; 80048; 81003; 81025; 82962; 84703; 85025; 86850; 86900; 88305; 96365; J0690; J1885; J2250; J2405; J2704; J3010; J7030; J7040

== ENCOUNTER 2021-02-06 09:11 | Outpatient (CLI) | payer MEDICARE, MEDICAID, SELFPAY ==
--- NOTE | 2021-02-06 09:20 | MM_ITS ---
WS: [id number] Exam: [place] [id number] Date/Time of Exam: 02/06/2021 9:21 AM Reason For Exam: SCREEN VIEWS: MLO and CC views both breasts. No comparisons. Findings: There was no sign of mass, architectural distortion or suspicious calcification in either breast. He terogeneously dense MM/[place] [id number] Impression: BI-RADS: 2-Benign FOLLOW-UP: 1 Year Follow-up This mammogram was also analyzed by the Computer Aided Detection System R2 Imag e Tapper Hand.
== END 2021-02-06 09:12 | disposition home or self-care (01) ==
PROVIDERS: PCP Nurse Practitioner Family; Visit Provider Nurse Practitioner Family
DX: Z12.31 Encounter for screening mammogram for malignant neoplasm of breast (principal)
CPT/HCPCS: 77067

== ENCOUNTER 2021-03-04 12:00 | Emergency (ER) | payer MEDICARE, MEDICAID, SELFPAY ==
[2021-03-04 12:05] VITALS: BP 137/73; PULSE 104; RESP 18; TEMP 36.8; O2SAT 100; BMI 33.7
--- NOTE | 2021-03-04 12:05 | XRR_ITS ---
PROCEDURE INFORMATION: Exam: XR Chest Exam date and time: 03/04/2021 12:05 PM Age: 25 years old Clinical indication: Pain; Shortness of breath; Angina pectoris; Additional info: Chest pain TECHNIQUE: Imaging protocol: XR of the chest. Views: 1 view. COMPARISON: [place] [id number] 12/10/2020 4:04 PM FINDINGS: Lungs: Unremarkable. No consolidation. Pleural spaces: Unremarkable. No pleural effusion. No pneumothorax. Heart/Mediastinum: Unremarkable. No cardiomegaly. Bones/joints: Unremarkable. XR/XR chest 1V portable [id number] IMPRESSION: No acute findings. Radiation Dose CTDIVOL = (mGy): DLP = (mGy-cm)
--- NOTE | 2021-03-04 12:05 | ECG_ITS ---
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 Measurements Intervals [place] Rate: 101 P: 41 GA: 146 QRS: 92 QRSD: 93 T: 61 QT: 345 QTc: 447 Interpretive Statements SINUS TACHYCARDIA BORDERLINE RIGHT AXIS DEVIATION [QRS AXIS > 90] INCOMPLETE RIGHT BUNDLE BRANCH BLOCK [90+ ms QRS DURATION, TERMINAL R IN V1/V2, 40+ ms S IN I/aVL/V4/V5/V6] Compared to ECG 10/19/2020 19:37:28 Incomplete right bundle-branch block now present Sinus rhythm no longer present Electronically Signed On 03-04-2021 17:43:29 ONLINE EDUCATION MANAGER by Ramon Smith M.D. [email or web address]
--- NOTE | 2021-03-04 12:51 | ED_ITS ---
HPI - General Adult General: Chief complaint: Chest Pain Stated complaint: R SIDED CHEST PAIN Time Seen by Provider: 03/04/21 12:05 History of Present Illness: HPI narrative: CC: Chest Pain HPI: This is a [25] yo patient hx of DM, depression, anxiety, Deidra disease presenting to the ED complaining of acute sudden onset intermittent R sided pressure pain x 1 days WITHOUT radiation to the back or shoulders . No associated with shortness of breath, chest pain or dyspnea on exertion. Pain is not tearing in nature and does not radiate to the back. Pain not associated with vomiting or PO intake. Denies any recent sympathomimetic drug use. Patient denies any cough. Denies palpitations, dysphagia, diaphoresis, radiation of pain to bilateral arms, jaw. Denies F/N/V/D. Patient denies any recent immobility, unilateral leg swelling, or prior PE. Patient denies any orthopnea. Of note, patient had her polyps removed at the end of January under general anesthesia. Onset: 1 days ago Duration: ongoing for the last 1 days Location: home Severity: mild/moderate Review of Systems Narrative: Constitutional: No fever, no chills. HEENT: No vision changes, no sore throat. CV: +chest pain, no palpitations. PULM: No cough, No dyspnea. GI: No abdominal pain, no N/V/D. : No dysuria, no frequency, no hematuria. MSKEL: No arthralgias, no edema. SKIN: No new rashes, no lesions. NEURO: No headache, no focal weakness. HEME: No easy bleeding or bruising. PSYCH: No change in mood or affect. PFS ED PFSH: Medical History (Updated 03/04/21 @ 13:30 by Kylah Campos MD) Acne ADHD, predominantly inattentive type Bipolar 1 disorder Huntingtons chorea Insomnia Oppositional defiant disorder of childhood or adolescence Psychotic disorder Family History Grandmother Diabetes maternal Breast cancer Grandfather Diabetes maternal Denies family history of Colon cancer Ovarian cancer Clotting disorder Bleeding disorder Hypertension Uterine cancer Thyroid disease Stroke Social History Smoking and tobacco status: never smoked Alcohol intake: never Current gender identity: Female Female Reproductive History: Date of last menstrual period: 01/23/21 Physical Exam Narrative: EXAM NARRATIVE: Head: Atraumatic, normocephalic Eyes: PERRL, EOMI, conjunctiva without injection ENT: Throat without erythema, lesions or exudate, MMM NECK: Supple, trachea midline, no JVD LUNGS: LCTA CV: RRR, S1,S2, no murmurs, rubs, gallops. 2+ peripheral pulses in UEs ABDOMEN: Soft, nontender, nondistended, BS x4, no rigidity, no guarding, no rebound EXTREMITY: Normal ROM, no pitting edema, no calf tenderness to palpation SKIN: No rash or erythema NEURO: Awake and alert. No focal motor deficits. PSYCH: Normal mood and affect. Course Vital Signs: Vital signs: Vital Signs Temperature 98.3 F 03/04/21 12:05 Pulse Rate 91 03/04/21 13:31 Respiratory Rate 18 03/04/21 13:31 Blood Pressure 108/81 03/04/21 13:31 Pulse Oximetry 96 03/04/21 13:31 MDM - General Adult MDM Narrative: Medical decision making narrative: [25]yo patient w/ hx of DM, depression, and bipolar disorder, Deidra disease presenting to the ED with evaluation of new onset R sided chest pain lasting for 1 day. HDS, pulse 2+ radially bilaterally, no signs of fluid overload, AAOx3, neuro exam intact. Given History and Exam today I have no suspicion for ACS, Pneumothorax, Pneumonia, Pulmonary Embolus, Tamponade, Aortic Dissection or other emergent problems as a cause for this presentation. Workup: ECG, CXR, CBC, BMP, Troponin, Dimer Interventions: Tyleonol 500mg PRN pain Findings: ECG: No overt evidence of STEMI, hyperacute T waves, localizable STD or T wave inversions. No evidence of Brugada?s sign, delta wave, epsilon wave, significantly prolonged QTc, or malignant arrhythmia. No Q waves. Other Labs unremarkable for emergent problems. CXR: Without PTX, PNA, or widened mediastinum Last Stress Test: never Last Heart Catheterization: never HEART Score: 0 Dimer wnl [2:55] On reassessment, the patient is HDS, no complaints of persistent chest pain in the ED after evaluation. ECG is non-ischemic. Workup today is unremarkable. Doubt ACS/PE or other emergent causes of chest pain. Glucose improved on reassessment Rx: Tylenol 500mg PRN pain Disposition: Discharge. Strict return precautions discussed with the patient with full understanding. Advised patient to follow up promptly with a primary care provider in 24-48 hrs if the patient has persistent symptoms. Given return instructions for any crushing/tearing chest pain, focal weakness, syncope or any new or concerning issues. Lab Data: Labs: Lab Results 03/04/21 03/04/21 03/04/21 13:01 13:01 13:01 WBC 5.9 10^3/uL 10^3/ uL (4.0-10.0) RBC 4.26 10^6/uL 10^6 /uL (4.1-5.3) Hgb 13.0 g/dL g/dL (11.5-15.3) Hct 38.2 % % (37.0-47.0) MCV 89.7 fl fl (81-99) MCH 30.5 pg pg (28.0-34.0) MCHC 34.0 g/dL g/dL (30.0-36.0) RDW 12.0 % L % (12.1-15.1) Plt Count 200 10^3/cmm 10^3 /cmm (130-400) MPV 10.5 fL H fL (7.4-10.4) Neut % (Auto) 60.2 % % Lymph % (Auto) 29.6 % % [place] % (Auto) 8.2 % % Eos % (Auto) 1.2 % % Baso % (Auto) 0.5 % % Neut # (Auto) 3.53 10^3/uL 10^3 /uL (1.8-7.7) Lymph # (Auto) 1.7 10^3/uL 10^3/ uL (0.8-4.8) [place] # (Auto) 0.5 10^3/uL 10^3/ uL (0.2-0.9) Eos # (Auto) 0.1 10^3/uL 10^3/ uL (0.0-0.8) Baso # (Auto) 0.0 10^3/uL 10^3/ uL (0.0-0.1) Nucleated RBC % (a uto) 0 % % Nucleated RBCs # 0.0 /100WBC /100W BC D-Dimer Sodium 136 mmol/L mmol/L (136-145) Potassium 4.2 mmol/L mmol/L (3.5-5.1) Chloride 99 mmol/L mmol/L (98-107) Carbon Dioxide 25 mmol/L mmol/L (22-29) Anion Gap 16.2 (5-19) BUN 5 mg/dL L mg/dL (6-20) Creatinine 0.6 mg/dL mg/dL (0.5-0.9) GFR Calculation 123.9 mL/min mL/m in (90-130) Glucose 218 mg/dL H mg/dL (65-115) Calculated Osmolal ity 286 mOsm/kg mOsm/ kg (285-295) Calcium 8.9 mg/dL mg/dL (8.5-10.5) Urine Color Yellow (Yellow) Urine Appearance Clear (CLEAR) Urine pH 7 (5-7) Ur Specific Gravit y 1.000 L (1.005-1.030) Urine Protein Neg (Negative) Urine Glucose (UA) 4+ H (Normal) Urine Ketones 1+ H (Negative) Urine Blood Neg (Negative) Urine Nitrate Negative (Negative) Urine Bilirubin Neg (Negative) Urine Urobilinogen Norm mg/dL mg/dL (Negative) Ur Leukocyte Shaniqua ase Negative (Negative) 03/04/21 14:12 WBC RBC Hgb Hct MCV MCH MCHC RDW Plt Count MPV Neut % (Auto) Lymph % (Auto) [place] % (Auto) Eos % (Auto) Baso % (Auto) Neut # (Auto) Lymph # (Auto) [place] # (Auto) Eos # (Auto) Baso # (Auto) Nucleated RBC % (a uto) Nucleated RBCs # D-Dimer 0.32 ug/mIFEU ug/ mIFEU (0-0.59) Sodium Potassium Chloride Carbon Dioxide Anion Gap BUN Creatinine GFR Calculation Glucose Calculated Osmolal ity Calcium Urine Color Urine Appearance Urine pH Ur Specific Gravit y Urine Protein Urine Glucose (UA) Urine Ketones Urine Blood Urine Nitrate Urine Bilirubin Urine Urobilinogen Ur Leukocyte Shaniqua ase Discharge Plan Discharge Patient Disposition: Home Clinical Impression: Chest pain, Hyperglycemia Condition: Stable Prescriptions: No Action amantadine HCl 100 mg capsule 100 mg PO BID@, RF: 0 buspirone 5 mg tablet 5 mg PO TID@,, RF: 0 clindamycin-benzoyl peroxide 1-5 % gel with pump 1 applic TOPICAL DAILY RF: 0 divalproex 250 mg tablet extended release 24 hr 250 mg PO TID@ RF: 0 acetaminophen 500 mg capsule 1,000 mg PO Q6H PRN (Reason: fever or pain) RF: 0 Januvia 50 mg tablet 50 mg PO DAILY@0800 RF: 0 levothyroxine 88 mcg capsule 88 mcg PO DAILY@0700 RF: 0 lithium carbonate 300 mg capsule 300 mg PO TID@ RF: 0 ondansetron 4 mg film 4 mg PO Q8H PRN (Reason: nausea and vomiting) RF: 0 norgestimate-ethinyl estradiol [Tri-Sprintec (28)] 0.18/0.215/0.25 mg-35 mcg (28) tablet 1 tab PO DAILY@1999 RF: 0 trazodone 100 mg tablet 100 mg PO DAILY RF: 0 fluticasone propionate [Flonase Allergy Relief] 50 mcg/actuation spray,suspension 2 spray intranasal DAILY RF: 0 ketotifen fumarate [Alaway] 0.025 % (0.035 %) drops 1 drp ophthalmic (eye) BID RF: 0 hydrochlorothiazide 25 mg tablet 25 mg PO DAILY PRN (Reason: fluid retention) RF: 0 triamcinolone acetonide 0.1 % cream 1 applic topical DAILY RF: 0 multivitamin Tablet 1 tab PO DAILY@1999 RF: 0 diphenhydramine HCl [Banophen] 25 mg capsule 25 mg PO BEDTIME@1999 RF: 0 ibuprofen 200 mg Tablet 200 mg PO Q6H PRN (Reason: Pain) RF: 0 quetiapine 300 mg tablet extended release 24 hr 300 mg PO DAILY@1999 RF: 0 melatonin 5 mg tablet 10 mg PO BEDTIME@1999 RF: 0 dicyclomine 20 mg tablet 10 mg PO QID RF: 0 ibuprofen 800 mg tablet 800 mg PO TID PRN (Reason: pain) Qty: 60 RF: 0 Discharge Orders: Discharge ED (Routine); Ordered 03/04/21 Ordered By: Kylah Campos Referrals: Anusha Carlson RESTORATIVE REHAB AIDE [Primary Care Provider] - Discharge Diet: Advance as tolerated Discharge Activity: Resume usual activity Patient Instructions: Diabetes and Diet, Chest Pain (ED) Activity Restrictions/Additional Instructions: Come back to the emergency room if your chest pain worsens, have any fever or chills, worsening shortness of breath, worsening exertional lightheadedness, or any new or concerning complaints. Coding Level of Care Code ED Social Science Research Assistant for Melvi Pink
[2021-03-04] MEDS: sodium chloride 0.9% 1,000 ML 999 ML IV (13:13)
[2021-03-04 13:19] LABS: Basophils % 0.5 %; Eosinophils # 0.1 10^3/uL (0.0-0.8); Eosinophils % 1.2 %; Hematocrit 38.2 % (37.0-47.0); Lymphocytes # 1.7 10^3/uL (0.8-4.8); Lymphocytes % 29.6 %; Mean Corpuscular Hemoglobin 30.5 pg (28.0-34.0); Mean Corpuscular Volume 89.7 fl (81-99); Mean Platelet Volume 10.5 fL (7.4-10.4); Monocytes # 0.5 10^3/uL (0.2-0.9); Monocytes % 8.2 %; Neutrophils # 3.53 10^3/uL (1.8-7.7); Neutrophils % 60.2 %; Nucleated Red Blood Cells % 0 %; Platelet Count 200 10^3/cmm (130-400); Red Blood Count 4.26 10^6/uL (4.1-5.3); White Blood Count 5.9 10^3/uL (4.0-10.0)
[2021-03-04 13:31] VITALS: BP 108/81; PULSE 91; RESP 18; O2SAT 96
--- NOTE | 2021-03-04 13:38 | PC.NURSE ---
Upon arrival into room continous cardiac, BP, and SpO2 monitoring initiated.
[2021-03-04 13:47] LABS: Add Urine Microscopic? NO; Charge for UA Resulting for Rev
[2021-03-04 13:50] LABS: Urine Appearance Clear (CLEAR); Urine Color Yellow (Yellow); pH Urine 7 (5-7)
[2021-03-04 13:51] LABS: Bilirubin Urine Neg (Negative); Blood Urine Neg (Negative); Glucose Urine UA 4+ (Normal); Ketones Urine 1+ (Negative); Leukocyte Esterase Urine Negative (Negative); Nitrate Urine Negative (Negative); Protein Urine Neg (Negative); Urobilinogen Urine Norm (Negative)
[2021-03-04 14:12] LABS: Anion Gap 16.2 (5-19); Blood Urea Nitrogen 5 mg/dL (6-20); Calcium 8.9 mg/dL (8.5-10.5); Carbon Dioxide 25 mmol/L (22-29); Chloride 99 mmol/L (98-107); Glomerular Filtration Rate 123.9 mL/min (90-130); Glucose 218 mg/dL (65-115); Osmolality Calculated 286 mOsm/kg (285-295); Potassium 4.2 mmol/L (3.5-5.1); Sodium 136 mmol/L (136-145)
[2021-03-04 14:31] LABS: D Dimer 0.32 ug/mIFEU (0-0.59)
[2021-03-04 14:57] VITALS: BP 148/89; PULSE 88
[2021-03-04 15:36] VITALS: BP 141/87; PULSE 97; RESP 14; O2SAT 100
[2021-03-05 22:38] LABS: Glucose Point of Care 220 mg/dL (70-110)
== END 2021-03-04 15:28 | disposition home or self-care (01) ==
PROVIDERS: Emergency Provider Emergency Medicine; PCP Nurse Practitioner Family
DX: R07.9 Chest pain, unspecified (principal); R73.9 Hyperglycemia, unspecified
CPT/HCPCS: 36416; 71045; 80048; 81003; 82962; 85025; 85378; 93005; 96360; 99284; J7030

== ENCOUNTER 2021-11-24 11:57 | Outpatient (CLI) | payer MEDICARE, MEDICAID, SELFPAY ==
--- NOTE | 2021-11-24 12:09 | MR_ITS ---
WS: [id number] MRI HEAD WITHOUT CONTRAST TECHNIQUE: Sagittal T1, T2 axial, T2 axial FLAIR, axial and coronal T1 images, axial susceptibility w eighted imaging, axial diffusion weighted images, and coronal T2 images were obtained. High-resolutio n coronal T2 and axial T1 imaging with attention to the pituitary. CLINICAL INFORMATION: BREAST DISCHARGE (N64.52) COMPARISON: CT June 11, 2020 FINDINGS: No evidence of restricted diffusion to suggest acute ischemia. Ventricular system and basal cisterns are patent. No suspicious intracranial signal abnormalities. Normal castro-white differentiation. Lacy l posterior fossa. Normal vascular flow voids at the skull base. No extra-axial fluid collections. No evidence of mass or mass effect. Paranasal sinuses and mastoid air cells are well aerated. No hemosiderin on the susceptibility weighted images. Normal optic chiasm and pituitary infundibulum. Normal cavernous sinuses and Meckel's cave. No visualized sella or suprasellar pituitary lesions. Ga dolinium not administered. Somewhat shallow sella with small volume pituitary tissue for patient this age. Normal optic chiasm and pituitary infundibulum. MR/MR pituitary wo con [id number] IMPRESSION: 1. No evidence of restricted diffusion to suggest acute ischemia. 2. Normal castro-white differentiation. No suspicious intracranial signal abnorm alities.. 3. No visualized sella or suprasellar pituitary lesions. Somewhat shallow sell a with small volume pituitary tissue for patient this age. 4. Normal optic chiasm and pituitary infundibulum. 5. No other significant findings.
== END 2021-11-24 11:58 | disposition home or self-care (01) ==
LOC: RAD 11:58
PROVIDERS: PCP Nurse Practitioner Family; Visit Provider Nurse Practitioner Family
DX: N64.52 Nipple discharge (principal)
CPT/HCPCS: 70551

== ENCOUNTER → 2022-03-21 14:46 | Outpatient (BNVA) | payer MEDICARE, MEDICAID, SELFPAY | PROVIDERS: PCP Nurse Practitioner Family; Visit Provider Registered Nurse Neonatal Intensive Care | DX: J02.9 Acute pharyngitis, unspecified (principal); J06.9 Acute upper respiratory infection, unspecified | CPT/HCPCS: 87071; 87880 ==

== ENCOUNTER 2022-06-05 12:35 | Emergency (ER) | payer MEDICARE, MEDICAID, SELFPAY ==
[2022-06-05 12:54] VITALS: BP 111/77; PULSE 98; TEMP 36.4; O2SAT 99; BMI 30.9
--- NOTE | 2022-06-05 13:17 | W.ED.HA ---
HPI - Headache General: Chief Complaint: Headache Stated Complaint: head pain Time Seen by Provider: 06/05/22 13:16 History of Present Illness: Ms. Rowell is a 26-year-old lady with complex past medical history including Friend's presenting to the emergency department for headache and fever. She reports feeling generally unwell with intermittent fevers for 6 days as well as pain in her head which is pounding in the frontal and right occipital region. Pain was severe enough that she had syncope yesterday while at the grocery store. Denies other focal sources of infection. Intensity symptoms is moderate to severe. Course has persisted. No other specific changes in health, exacerbating, or alleviating factors identified. Onset (ago): day(s) Onset description: gradually Location: frontal and occipital Severity: moderate Quality & Timing: throbbing Exacerbating factors: none Relieving factors: nothing Associated symptoms: Reports fever(s), malaise and syncope Review of Systems General: Reports: 10 or more systems reviewed and unremarkable except in HPI and below Const: Reports: fever(s) and malaise Card: Reports: syncope [facility], [facility] ED PFSH: Medical History Abnormal uterine bleeding (AUB) Acne ADHD, predominantly inattentive type Aftercare following surgery of the genitourinary system Bipolar 1 disorder Huntingtons chorea Insomnia Oppositional defiant disorder of childhood or adolescence Psychotic disorder Surgical History H/O oral surgery Status post hysteroscopic polypectomy 02/04/2021- hysteroscopic polypectomy and curettage via Myosure performed by Dr. Silverman at [facility] Family History Grandmother Diabetes maternal Breast cancer Grandfather Diabetes maternal Denies family history of Colon cancer Ovarian cancer Clotting disorder Bleeding disorder Hypertension Uterine cancer Thyroid disease Stroke Social History Smoking and tobacco status: never smoked Alcohol intake: never Current gender identity: Female Physical Exam Const: COMMON NORMALS: patient oriented x3 and alert GENERAL APPEARANCE: cooperative and well developed HENMT: COMMON NORMALS: normocephalic and atraumatic HEAD & SCALP: normocephalic and atraumatic Eye: COMMON NORMALS: conjunctivae normal CONJUNCTIVA: Yes conjunctivae normal SCLERA: sclerae normal Neck/C-Spine: COMMON NORMALS: supple and no meningeal signs GENERAL: Yes trachea midline Resp: COMMON NORMALS: normal respiratory effort EFFORT & INSPECTION: Yes able to speak in complete sentences Cardio: COMMON NORMALS: regular rate and regular rhythm RATE: regular rate RHYTHM: regular rhythm GI: COMMON NORMALS: Soft to palpation PALPATION: Yes Soft to palpation and No Tenderness to palpation present (GI) Extremity: GENERAL: Yes normal exam except as noted and No edema Neuro: COMMON NORMALS: patient oriented x3, CN's II-XII intact bilaterally and moves all extremities SENSORIUM/ORIENTATION: Yes alert and No Orientation impaired MENINGEAL SIGNS: Yes no meningeal signs Psych: COMMON NORMALS: mental status grossly normal and Normal thought process present THOUGHT PROCESS: Normal thought process present Course Vital Signs: Vital signs: Vital Signs Temperature 97.5 F L 06/05/22 12:54 Pulse Rate 88 06/05/22 16:27 Respiratory Rate 16 06/05/22 16:27 Blood Pressure 118/76 06/05/22 16:27 Pulse Oximetry 99 06/05/22 16:27 Oxygen Delivery Me thod 06/05/22 13:28 MDM - Headache Medical Decision Making 27-year-old lady presenting with headache in the context of underlying neurologic disorder. Exam as above without focal findings. EKG notable for sinus rhythm with normal axis and intervals. No STEMI. Labs notable for leukopenia with neutropenia predominance though normal present range. Mild dehydration on metabolic panel. Procalcitonin negative. No UTI. COVID PCR negative. CT head negative for acute pathology. Patient treated with migraine cocktail. Near complete resolution of headache on reassessment, patient feels significantly improved, no focal neurologic deficits or meningismus. I did offer lumbar puncture and discussed risks and benefits, family is comfortable and patient is comfortable foregoing at this time with strict return precautions. The results of ED evaluation were discussed with the patient including prescriptions and/or symptomatic cares (if applicable) including appropriate and responsible use, followup plan, and return precautions. The patient verbalized understanding and felt safe for discharge. Medical Records I reviewed the patient's medical records. Lab Data I reviewed the patient's lab results. 06/05/22 14:15 06/05/22 14:[address] 06/05/22 13:32 IMPRESSION: No acute intracranial abnormality. Laboratory Results WBC 3.0 10^3/uL (4.0-10.0) L 06/05/22 14:15 RBC 4.23 10^6/uL (4.1-5.3) 06/05/22 14:15 Hgb 12.4 g/dL (11.5-15.3) 06/05/22 14:15 Hct 38.3 % (37.0-47.0) 06/05/22 14:15 MCV 90.5 fl (81-99) 06/05/22 14:15 MCH 29.3 pg (28.0-34.0) 06/05/22 14:15 MCHC 32.4 g/dL (30.0-36.0) 06/05/22 14:15 RDW 13.1 % (12.1-15.1) 06/05/22 14:15 Plt Count 133 10^3/cmm (130-400) 06/05/22 14:15 MPV 9.9 fL (7.4-10.4) 06/05/22 14:15 Neut % (Auto) 26.0 % 06/05/22 14:15 Lymph % (Auto) 60.2 % 06/05/22 14:15 [place] % (Auto) 11.2 % 06/05/22 14:15 Eos % (Auto) 0.0 % 06/05/22 14:15 Baso % (Auto) 1.0 % 06/05/22 14:15 Neut # (Auto) 0.79 10^3/uL (1.8-7.7) L* 06/05/22 14:15 Lymph # (Auto) 1.8 10^3/uL (0.8-4.8) 06/05/22 14:15 [place] # (Auto) 0.3 10^3/uL (0.2-0.9) 06/05/22 14:15 Eos # (Auto) 0.0 10^3/uL (0.0-0.8) 06/05/22 14:15 Baso # (Auto) 0.0 10^3/uL (0.0-0.1) 06/05/22 14:15 Nucleated RBC % (auto) 0 % 06/05/22 14:15 Nucleated RBCs # 0.0 /100WBC 06/05/22 14:15 Sodium 135 mmol/L (136-145) L 06/05/22 14:15 Potassium 4.1 mmol/L (3.5-5.1) 06/05/22 14:15 Chloride 101 mmol/L (98-107) 06/05/22 14:15 Carbon Dioxide 26 mmol/L (22-29) 06/05/22 14:15 Anion Gap 12.1 (5-19) 06/05/22 14:15 BUN 6 mg/dL (6-20) 06/05/22 14:15 Creatinine 0.8 mg/dL (0.5-0.9) 06/05/22 14:15 GFR Calculation 88.1 mL/min (90-130) L 06/05/22 14:15 Glucose 76 mg/dL (65-115) 06/05/22 14:15 POC Glucose 77 mg/dL (70-110) 06/05/22 15:25 Calculated Osmolality 276 mOsm/kg (285-295) L 06/05/22 14:15 Lactate 1.0 mmol/L (0.5-2.2) 06/05/22 14:15 Calcium 9.3 mg/dL (8.5-10.5) 06/05/22 14:15 Total Bilirubin 0.2 mg/dL (0.15-1.2) 06/05/22 14:15 AST 25 U/L (0-32) 06/05/22 14:15 ALT 19 U/L (0-33) 06/05/22 14:15 Alkaline Phosphatase 84 U/L (35-105) 06/05/22 14:15 C-Reactive Protein 36.4 mg/L (0.0-4.9) H 06/05/22 14:15 Total Protein 6.3 g/dL (6.6-8.7) L 06/05/22 14:15 Albumin 3.2 g/dL (3.5-5.2) L 06/05/22 14:15 Globulin 3.1 g/dL (1.3-4.6) 06/05/22 14:15 Procalcitonin 0.10 ng/mL (0-0.5) 06/05/22 14:15 HCG, Qual Negative (Negative) 06/05/22 14:15 Urine Color Straw (Yellow) 06/05/22 13:41 Urine Appearance Clear (CLEAR) 06/05/22 13:41 Urine pH 8 (5-7) H 06/05/22 13:41 Ur Specific [place] 1.010 (1.005-1.030) 06/05/22 13:41 Urine Protein Neg (Negative) 06/05/22 13:41 Urine Glucose (UA) Norm (Normal) 06/05/22 13:41 Urine Ketones Negative (Negative) 06/05/22 13:41 Urine Blood Neg (Negative) 06/05/22 13:41 Urine Nitrate Negative (Negative) 06/05/22 13:41 Urine Bilirubin Neg (Negative) 06/05/22 13:41 Prot Sulfosalicylic Acd Negative (Negative) 06/05/22 13:41 Urine Urobilinogen Norm mg/dL (Negative) 06/05/22 13:41 Ur Leukocyte Esterase Negative (Negative) 06/05/22 13:41 Coronavirus 229E (PCR) Not detected (NOT DETECT) 06/05/22 13:45 SARS-CoV-2 (PCR) Not detected (NOT DETECT) 06/05/22 13:45 Discharge Plan Discharge Patient Disposition: Home Clinical Impression: Headache, Neutropenia Condition: Stable Prescriptions: New Reglan 10 mg tablet 10 mg PO Q6H PRN (Reason: migraine headache) Qty: 20 0RF No Action amantadine HCl 100 mg capsule 100 mg PO BID@08,20 buspirone 5 mg tablet 5 mg PO TID@08,,20 divalproex 250 mg tablet extended release 24 hr 250 mg PO TID@08,12,20 Januvia 50 mg tablet 50 mg PO DAILY@0800 Rx Instructions: With breakfast levothyroxine 88 mcg capsule 88 mcg PO DAILY@0700 lithium carbonate 300 mg capsule 300 mg PO TID@08,12,20 ondansetron 4 mg film 4 mg PO Q8H PRN (Reason: nausea and vomiting) norgestimate-ethinyl estradiol [Tri-Sprintec (28)] 0.18/0.215/0.25 mg-35 mcg (28) tablet 1 tab PO DAILY@1999 trazodone 100 mg tablet 100 mg PO DAILY fluticasone propionate [Flonase Allergy Relief] 50 mcg/actuation spray,suspension 2 spray intranasal DAILY Rx Instructions: administer into each nostril ketotifen fumarate [Alaway] 0.025 % (0.035 %) drops 1 drp ophthalmic (eye) BID Rx Instructions: administer at least 8 hours apart hydrochlorothiazide 25 mg tablet 25 mg PO DAILY PRN (Reason: fluid retention) triamcinolone acetonide 0.1 % cream 1 applic topical DAILY acetaminophen 500 mg capsule 1,000 mg PO Q6H PRN (Reason: fever or pain) Qty: 60 0RF Chloraseptic Max Sore Throat 1.5-33 % spray,non-aerosol 1 spray mucous membrane DAILY PRN (Reason: sore throat) Qty: 118 0RF Rx Instructions: leave on area for 15 seconds then spit out multivitamin Tablet 1 tab PO DAILY@1999 diphenhydramine HCl [Banophen] 25 mg capsule 25 mg PO BEDTIME@1999 ibuprofen 200 mg Tablet 200 mg PO Q6H PRN (Reason: Pain) quetiapine 300 mg tablet extended release 24 hr 300 mg PO DAILY@1999 melatonin 5 mg tablet 10 mg PO BEDTIME@1999 dicyclomine 20 mg tablet 10 mg PO QID ibuprofen 800 mg tablet 800 mg PO TID PRN (Reason: pain) Qty: 60 0RF prednisone 10 mg tablet 60 mg PO DAILY 5 Days Qty: 30 0RF Discharge Orders: Discharge ED (Routine); Ordered 06/05/22 Ordered By: Enrique Eaton Referrals: Anusha Carlson FNP [Primary Care Provider] - Discharge Diet: Usual diet Discharge Activity: Resume usual activity Patient Instructions: Acute Headache (ED), Neutropenia (ED) Activity Restrictions/Additional Instructions: Thank you for visiting the emergency department. You were seen and evaluated for headache. The exact cause of your symptoms is unclear though does not appear to need inpatient management at this time. As discussed your white blood cell count and neutrophil count are low, please follow-up with your primary care provider for repeat labs and further evaluation of this. Return to the emergency department for worsening symptoms, any new neurologic deficits, neck pain, fevers, or anything else that you are concerned about and feel needs emergency department evaluation. Coding Level of Care Code ED Data Collection Specialist for Melvi Pink
[2022-06-05 13:28] VITALS: BP 134/83; PULSE 93; O2SAT 98
--- NOTE | 2022-06-05 13:32 | CTR_ITS ---
PROCEDURE INFORMATION: Exam: CT Head Without Contrast Exam date and time: 06/05/2022 2:54 PM Age: 26 years old Clinical indication: Pain; Headache; Additional info: Headache, syncope TECHNIQUE: Imaging protocol: Computed tomography of the head without contrast. Radiation optimization: All CT scans at this facility use at least one of these dose optimization techniques: automated exposure control; mA and/or kV adjustment per patient size (includes targeted exams where dose is matched to clinical indication); or iterative reconstruction. REPORTING DATA: Count of CT and Cardiac NM exams in prior 12 months: This patient has received 0 known CTs and 0 known cardiac nuclear medicine studies in the 12 months prior to the current study. COMPARISON: CT head wo con* [id number] 06/11/2020 10:48 PM RADIATION DOSE METRICS: Total DLP (mGy-cm): 1072.18 FINDINGS: Brain: Normal. No hemorrhage. No mass effect or midline shift. Cortical sulci and white matter are unremarkable for age. Cerebral ventricles: Unremarkable for age. Paranasal sinuses: Visualized sinuses are unremarkable. No fluid levels. Mastoid air cells: Visualized mastoid air cells are well aerated. Bones/joints: Unremarkable. No acute fracture. Soft tissues: Unremarkable. CT/CT head wo con* [id number] IMPRESSION: No acute intracranial abnormality.
--- NOTE | 2022-06-05 13:33 | ECG_ITS ---
[facility] Test Date: 2022-06-05 Pat Name: Melinda Rowell Department: Room: Gender: Female Labeling Specialist: : 1995 Requested By: Enrique Eaton Order Number: [id number] Josefina MD: Ramon Smith M.D. Measurements Intervals [place] Rate: 94 P: 16 ME: 156 QRS: 80 QRSD: 90 T: 30 QT: 345 QTc: 432 Interpretive Statements SINUS RHYTHM LOW QRS VOLTAGE IN PRECORDIAL LEADS [QRS DEFLECTION < 1.0 mV IN CHEST LEADS] POSSIBLE RIGHT VENTRICULAR CONDUCTION DELAY [RSR (QR) IN V1/V2] Compared to ECG 03/04/2021 12:09:59 Low QRS voltage now present Sinus tachycardia no longer present Incomplete right bundle-branch block no longer present Electronically Signed On 06-05-2022 20:50:37 CONTACT CENTER TEAM LEAD by Ramon Smith M.D. [email or web address]
[2022-06-05 13:55] LABS: Add Urine Microscopic? NO; Charge for UA Resulting for Rev
[2022-06-05 14:08] LABS: Bilirubin Urine Neg (Negative); Blood Urine Neg (Negative); Glucose Urine UA Norm (Normal); Ketones Urine Negative (Negative); Leukocyte Esterase Urine Negative (Negative); Nitrate Urine Negative (Negative); Protein Urine Neg (Negative); Sulfosalicylic Acid Urine Negative (Negative); Urine Appearance Clear (CLEAR); Urine Color Straw (Yellow); Urobilinogen Urine Norm (Negative); pH Urine 8 (5-7)
[2022-06-05 14:30] VITALS: BP 134/83; PULSE 93; O2SAT 93
[2022-06-05] MEDS: sodium chloride 0.9% 1,000 ML 999 ML IV (14:32)
[2022-06-05] MEDS: metoclopramide 5 mg/mL SDV 2 mL 10 MG IVP (14:35)
[2022-06-05] MEDS: ketorolac 30 mg/mL INJ 15 MG IVP (14:35)
[2022-06-05] MEDS: diphenhydrAMINE 50 mg/mL SDV 1mL 12.5 MG IVP (14:35)
[2022-06-05 14:36] LABS: Hematocrit 38.3 % (37.0-47.0); Hemoglobin 12.4 g/dL (11.5-15.3); Lymphocytes # 1.8 10^3/uL (0.8-4.8); Lymphocytes % 60.2 %; Mean Corpuscular HGB Conc 32.4 g/dL (30.0-36.0); Mean Corpuscular Hemoglobin 29.3 pg (28.0-34.0); Mean Corpuscular Volume 90.5 fl (81-99); Mean Platelet Volume 9.9 fL (7.4-10.4); Monocytes # 0.3 10^3/uL (0.2-0.9); Monocytes % 11.2 %; Nucleated Red Blood Cells % 0 %; Platelet Count 133 10^3/cmm (130-400); Red Blood Count 4.23 10^6/uL (4.1-5.3); Red Cell Distribution Width 13.1 % (12.1-15.1)
[2022-06-05 14:49] LABS: HCG, Serum Qual Negative (Negative)
[2022-06-05 15:00] VITALS: BP 137/73; PULSE 89; O2SAT 91
[2022-06-05 15:03] LABS: Alanine Aminotransferase 19 U/L (0-33); Albumin Level 3.2 g/dL (3.5-5.2); Alkaline Phosphatase 84 U/L (35-105); Anion Gap 12.1 (5-19); Aspartate Amino Transferase 25 U/L (0-32); Blood Urea Nitrogen 6 mg/dL (6-20); C Reactive Protein 36.4 mg/L (0.0-4.9); Calcium 9.3 mg/dL (8.5-10.5); Carbon Dioxide 26 mmol/L (22-29); Chloride 101 mmol/L (98-107); Globulin 3.1 g/dL (1.3-4.6); Glomerular Filtration Rate 88.1 mL/min (90-130); Glucose 76 mg/dL (65-115); Osmolality Calculated 276 mOsm/kg (285-295); Potassium 4.1 mmol/L (3.5-5.1); Sodium 135 mmol/L (136-145); Total Bilirubin 0.2 mg/dL (0.15-1.2); Total Protein 6.3 g/dL (6.6-8.7)
[2022-06-05 15:17] LABS: Neutrophils # 0.79 10^3/uL (1.8-7.7); Slide Review Slide Review Perform
[2022-06-05 15:28] LABS: Glucose Point of Care 77 mg/dL (70-110)
[2022-06-05 15:38] LABS: Adenovirus Not Detected (NOT DETECT); Chlamydia Pneumoniae Not Detected (NOT DETECT); Coronavirus 229E,HKU1,NL63,OC4 Not Detected (NOT DETECT); Human Metapneumovirus Not Detected (NOT DETECT); Human Rhinovirus/Enterovirus Not Detected (NOT DETECT); Influenza A Not Detected (NOT DETECT); Influenza A H1 Not Detected (NOT DETECT); Influenza A H1-2009 Not Detected (NOT DETECT); Influenza A H3 Not Detected (NOT DETECT); Influenza B Not Detected (NOT DETECT); Mycoplasma Pneumoniae Not Detected (NOT DETECT); Parainfluenza Virus Type 1 Not Detected (NOT DETECT); Parainfluenza Virus Type 2 Not Detected (NOT DETECT); Parainfluenza Virus Type 3 Not Detected (NOT DETECT); Parainfluenza Virus Type 4 Not Detected (NOT DETECT); Respiratory Syncytial Virus A Not Detected (NOT DETECT); Respiratory Syncytial Virus B Not Detected (NOT DETECT); SARS-COV-2 Not Detected (NOT DETECT)
[2022-06-05 16:27] VITALS: BP 118/76; PULSE 88; RESP 16; O2SAT 99
== END 2022-06-05 16:29 | disposition home or self-care (01) ==
PROVIDERS: Emergency Provider Emergency Medicine; PCP Nurse Practitioner Family
DX: R51.9 Headache, unspecified (principal); D70.9 Neutropenia, unspecified; Z20.822 Contact with and (suspected) exposure to COVID-19; G10 Huntington's disease
CPT/HCPCS: 36416; 70450; 80053; 81003; 82962; 83605; 84145; 84703; 85025; 86140; 87040; 87635; 93005; 96361; 96374; 96375; 99285; J1200; J1885; J2765; J7030

== ENCOUNTER 2022-06-16 08:07 | Emergency (ER) | payer MEDICARE, MEDICAID, SELFPAY ==
[2022-06-16 08:14] VITALS: BP 127/87; PULSE 102; TEMP 36.6; O2SAT 94; BMI 25.7
--- NOTE | 2022-06-16 08:35 | CT_ITS ---
WS: [id number] CT NECK TECHNIQUE: Contrast-enhanced CT of the neck with coronal and sagittal reformatted images. CLINICAL INFORMATION: swelling, difficulty swallowing COMPARISON: None. DLP: 234.[address] scans at [facility] use at least one of these dose optimization techniques: automated e xposure control; mA and/or kV adjustment per patient size (includes targeted exams where dose is matc hed to clinical indication); or iterative reconstruction. FINDINGS: Enlarged heterogeneously enhancing palatine tonsils compatible with tonsillitis. Diffuse prominence w ith heterogeneous enhancement involving the adenoids. Narrowing of the posterior nasopharynx due to a denoid enlargement. Normal parapharyngeal fat. No evidence of tonsillar or peritonsillar drainable ab scess. Soft tissue edema within the posterior nasopharynx and oropharynx. Enhancing RIGHT retropharyn geal lymph node measuring 8 x 10 mm. Diffuse extensive bilateral cervical lymphadenopathy throughout the cervical chains. This involves th e posterior triangle and level 4 lymph nodes extending to the bilateral supraclavicular regions and p artially visualized axilla. This extends to the thoracic inlet. Mild circumferential edema involving the pharynx. Vallecular and piriform sinuses are patent. Normal glottis. Normal subglottic airway. Parotid glands are normal. Submandibular glands are normal. Normal thyroid. Lung apices are well aera abhay. IMPRESSION: 1. Marked enlargement of the adenoids and palatine tonsils with heterogeneous enhancement compatible with tonsillitis. 2. No evidence of drainable peritonsillar or retropharyngeal abscess or fluid collection. Enhancing enlarged RIGHT retropharyngeal lymph node. 3. Mild diffuse circumferential edema involving the nasopharynx, oropharynx, and supraglottic larynx . Normal glottis. 4. Diffuse marked lymphadenopathy throughout all cervical chains extending to the supraclavicular re gions and proximal axilla 5. Mastoid air cells are well aerated. Paranasal sinuses appear well aerated.
--- NOTE | 2022-06-16 08:35 | W.ED.GENADLT ---
HPI - General Adult General: Chief complaint: General Medical Stated complaint: sore throat Time Seen by Provider: 06/16/22 08:22 Source: patient and other (caregiver) Mode of arrival: EMS Limitations: no limitations History of Present Illness: Patient is a 27-year-old female who presents to ED today via EMS along with one of her caregivers for complaints of a left earache, sore throat, and neck pain/swelling. Patient herself is not really able to provide much history due to fairly significant mental disability. She is able to tell me her ear and throat/neck hurts. She is a resident of [facility]. History of [place]'s disease. Caregiver with her is not really able to provide much history either as she states she just came on staff at 8 AM. She is able to review overnight notes from previous caregiver. Apparently patient woke up several times in the middle of the night crying that her throat hurt. There was some documentation that she had trouble swallowing her evening medications secondary to her throat and neck pain. Caregiver feels like her neck is swollen currently. She has not been running fevers. She is on antibiotics for her ear pain (Augmentin). Location: mouth (throat) and neck Severity: moderate Pain Consistency: constant Exacerbating factors: other (swallowing) Associated symptoms: Deny chest pain, dyspnea, headache(s), malaise, nausea, rash or vomiting Treatments prior to arrival: none Review of Systems Const: Denies: fever(s), chills, body aches, fatigue or malaise ENMT: Reports: throat pain, odynophagia and ear or mastoid pain; Denies: uvular edema, ear discharge, change in hearing, tinnitus, disequilibrium, nasal discharge, nasal congestion, post nasal drip or sinus pain Card: Denies: chest pain Resp: Denies: dyspnea GI: Denies: abdominal pain, nausea or vomiting Musc: Reports: neck pain; Denies: back pain, extremity pain or joint pain Skin/Breast: Denies: rash Neuro: Denies: headache(s), numbness in extremities, weakness in extremities, sensory changes or dizziness [facility] ED PFSH: Medical History Abnormal uterine bleeding (AUB) Acne ADHD, predominantly inattentive type Aftercare following surgery of the genitourinary system Bipolar 1 disorder Huntingtons chorea Insomnia Oppositional defiant disorder of childhood or adolescence Psychotic disorder Surgical History H/O oral surgery Status post hysteroscopic polypectomy 02/04/2021- hysteroscopic polypectomy and curettage via Myosure performed by Dr. Silverman at [facility] Family History Grandmother Diabetes maternal Breast cancer Grandfather Diabetes maternal Denies family history of Colon cancer Ovarian cancer Clotting disorder Bleeding disorder Hypertension Uterine cancer Thyroid disease Stroke Social History Smoking and tobacco status: never smoked Alcohol intake: never Current gender identity: Female Physical Exam Const: COMMON NORMALS: no acute distress, alert and well nourished GENERAL APPEARANCE: cooperative OTHER: pt with baseline mental disability/cognitive delays HENMT: COMMON NORMALS: normocephalic, atraumatic, hearing grossly normal bilaterally, external ears normal, EAC's normal, Normal external nose present and gingiva normal HEAD & SCALP: normal to inspection, normocephalic and atraumatic FACE & SINUS: normal facial exam NOSE: Normal external nose present EXTERNAL EAR: Yes external ears normal EXTERNAL AUDITORY CANAL: EAC's normal TYMPANIC MEMBRANE: TM abnormal (bilateral TM scarring/with effusions) MOUTH: lip normal, tongue normal and other (dry mucous membranes; slightly muffled voice) THROAT: other (some bilateral tonsillar hypertropy w/o exudates/erythema); no uvular edema OTHER: dry mucous membranes; post nasal drainage as well as some thick yellow like secretions to posterior pharynx Eye: GENERAL EYE: appearance normal, both eyes and all related structures Neck/C-Spine: COMMON NORMALS: full ROM and no meningeal signs GENERAL: Yes tender (L>R) OTHER: does appear to have some generalized anterior neck swelling although this could just be patient's body habitus; staff with patient feels it is swollen Resp: COMMON NORMALS: normal respiratory effort and clear to auscultation bilaterally AUSCULTATION: clear to auscultation bilaterally Cardio: COMMON NORMALS: regular rate and regular rhythm RATE: regular rate RHYTHM: regular rhythm Extremity: COMMON NORMALS: normal to inspection GENERAL: Yes normal exam except as noted Neuro: RICKI COMA SCALE: document GCS findings Ricki coma scale eye opening: Spontaneous [place] coma scale verbal response: Orientated Ricki coma scale motor response: Obey commands Vivian coma scale total score: 15 COMMON NORMALS: CN's II-XII intact bilaterally, moves all extremities, no focal motor deficits and no sensory deficits noted SENSORIUM/ORIENTATION: Yes alert MENINGEAL SIGNS: Yes no meningeal signs OTHER: at mental baseline per staff Skin: COMMON NORMALS: no rashes or lesions noted GENERAL SKIN EXAM: no rashes or lesions noted Course Vital Signs: Vital signs: Vital Signs Temperature 97.9 F 06/16/22 08:14 Pulse Rate 102 H 06/16/22 08:14 Blood Pressure 127/87 06/16/22 08:14 Pulse Oximetry 94 06/16/22 08:14 Oxygen Delivery Me thod 06/16/22 08:14 MDM - General Adult Medical Decision Making Patient's blood work overall is unremarkable. Strep is negative. CT scan showing large amount of her adenoids and palatine tonsils compatible with tonsillitis. She does have diffuse edema and lymphadenopathy. Patient is already on Amoxicillin I recommend she continue taking this. We will add steroids. Patient was able to take all of her home medications without difficulty. She was able to eat and drink here in the emergency department. Will be allowed discharge with strict return ED precautions given. Lab Data 06/16/22 09:14 06/16/22 09:14 Laboratory Results WBC 6.8 10^3/uL (4.0-10.0) 06/16/22 09:14 RBC 4.28 10^6/uL (4.1-5.3) 06/16/22 09:14 Hgb 12.4 g/dL (11.5-15.3) 06/16/22 09:14 Hct 39.5 % (37.0-47.0) 06/16/22 09:14 MCV 92.3 fl (81-99) 06/16/22 09:14 MCH 29.0 pg (28.0-34.0) 06/16/22 09:14 MCHC 31.4 g/dL (30.0-36.0) 06/16/22 09:14 RDW 13.2 % (12.1-15.1) 06/16/22 09:14 Plt Count 206 10^3/cmm (130-400) 06/16/22 09:14 MPV 8.8 fL (7.4-10.4) 06/16/22 09:14 Lymph % (Auto) Not Reportable 06/16/22 09:14 [place] % (Auto) Not Reportable 06/16/22 09:14 Lymph # (Auto) Not Reportable 06/16/22 09:14 [place] # (Auto) Not Reportable 06/16/22 09:14 Total Counted 100 (0-100) 06/16/22 09:14 Atypical Lymphs % 10.0 % (0-5) H 06/16/22 09:14 Absolute Neutrophils 2.9 10^3/cmm (1.4-6.5) 06/16/22 09:14 Segmented Neutrophils 37 % 06/16/22 09:14 Abs Segm Neuts (Man) 2.5 10/cmm (1.6-7.1) 06/16/22 09:14 Band Neutrophils 5.0 % 06/16/22 09:14 Abs Band Neuts (Man) 0.3 10^3/cmm (0.0-1.2) 06/16/22 09:14 Absolute Lymphocytes 3.3 10^3/cmm (1.2-3.4) 06/16/22 09:14 Lymphocytes (Manual) 38 % 06/16/22 09:14 Monocytes (Manual) 9.0 % 06/16/22 09:14 Absolute Monocytes 0.6 10^3/cmm (0.1-0.6) 06/16/22 09:14 Eosinophils (Manual) 1 % 06/16/22 09:14 Absolute Eosinophils 0.0 10^3/cmm (0.0-0.7) 06/16/22 09:14 Basophils (Manual) Not Reportable 06/16/22 09:14 Platelet Estimate Normal (Normal) 06/16/22 09:14 Polychromasia 1+ H 06/16/22 09:14 Sodium 132 mmol/L (136-145) L 06/16/22 09:14 Potassium 4.3 mmol/L (3.5-5.1) 06/16/22 09:14 Chloride 97 mmol/L (98-107) L 06/16/22 09:14 Carbon Dioxide 23 mmol/L (22-29) 06/16/22 09:14 Anion Gap 16.3 (5-19) 06/16/22 09:14 BUN 7 mg/dL (6-20) 06/16/22 09:14 Creatinine 0.8 mg/dL (0.5-0.9) 06/16/22 09:14 GFR Calculation 87.4 mL/min (90-130) L 06/16/22 09:14 Glucose 93 mg/dL (65-115) 06/16/22 09:14 Calculated Osmolality 272 mOsm/kg (285-295) L 06/16/22 09:14 Calcium 9.2 mg/dL (8.5-10.5) 06/16/22 09:14 Total Bilirubin 0.3 mg/dL (0.15-1.2) 06/16/22 09:14 AST 29 U/L (0-32) 06/16/22 09:14 ALT 27 U/L (0-33) 06/16/22 09:14 Alkaline Phosphatase 102 U/L (35-105) 06/16/22 09:14 Total Protein 7.2 g/dL (6.6-8.7) 06/16/22 09:14 Albumin 3.2 g/dL (3.5-5.2) L 06/16/22 09:14 Globulin 4.0 g/dL (1.3-4.6) 06/16/22 09:14 Group A Strep Rapid Negative (Negative) 06/16/22 08:55 Discharge Plan Discharge Patient Disposition: Home Clinical Impression: Acute tonsillitis Qualifiers: Pharyngitis/tonsillitis etiology: unspecified etiology Qualified Code(s): J03.90 - Acute tonsillitis, unspecified Condition: Stable Prescriptions: New prednisone 10 mg tablet 60 mg PO DAILY 5 Days Qty: 30 0RF No Action amantadine HCl 100 mg capsule 100 mg PO BID@, buspirone 5 mg tablet 5 mg PO TID@,, divalproex 250 mg tablet extended release 24 hr 250 mg PO TID@,, Januvia 50 mg tablet 50 mg PO DAILY@0800 Rx Instructions: With breakfast levothyroxine 88 mcg capsule 88 mcg PO DAILY@0700 lithium carbonate 300 mg capsule 300 mg PO TID@08,12,20 ondansetron 4 mg film 4 mg PO Q8H PRN (Reason: nausea and vomiting) norgestimate-ethinyl estradiol [Tri-Sprintec (28)] 0.18/0.215/0.25 mg-35 mcg (28) tablet 1 tab PO DAILY@1999 trazodone 100 mg tablet 100 mg PO DAILY fluticasone propionate [Flonase Allergy Relief] 50 mcg/actuation spray,suspension 2 spray intranasal DAILY Rx Instructions: administer into each nostril ketotifen fumarate [Alaway] 0.025 % (0.035 %) drops 1 drp ophthalmic (eye) BID Rx Instructions: administer at least 8 hours apart hydrochlorothiazide 25 mg tablet 25 mg PO DAILY PRN (Reason: fluid retention) triamcinolone acetonide 0.1 % cream 1 applic topical DAILY acetaminophen 500 mg capsule 1,000 mg PO Q6H PRN (Reason: fever or pain) Qty: 60 0RF Chloraseptic Max Sore Throat 1.5-33 % spray,non-aerosol 1 spray mucous membrane DAILY PRN (Reason: sore throat) Qty: 118 0RF Rx Instructions: leave on area for 15 seconds then spit out multivitamin Tablet 1 tab PO DAILY@1999 diphenhydramine HCl [Banophen] 25 mg capsule 25 mg PO BEDTIME@1999 ibuprofen 200 mg Tablet 200 mg PO Q6H PRN (Reason: Pain) quetiapine 300 mg tablet extended release 24 hr 300 mg PO DAILY@1999 melatonin 5 mg tablet 10 mg PO BEDTIME@1999 dicyclomine 20 mg tablet 10 mg PO QID ibuprofen 800 mg tablet 800 mg PO TID PRN (Reason: pain) Qty: 60 0RF Reglan 10 mg tablet 10 mg PO Q6H PRN (Reason: migraine headache) Qty: 20 0RF Discharge Orders: Discharge ED (Routine); Ordered 06/16/22 Ordered By: Lisa Dailey Referrals: Anusha Carlson FNP [Primary Care Provider] - Activity Restrictions/Additional Instructions: I am placing patient on 5 days of high-dose steroids to help with inflammation. She needs to continue all of her home medications including her Amoxicillin antibiotic. Patient needs to return to the emergency department for worsening pain or swelling, occultly swallowing, inability to hold down food or drink or her medications, difficulty breathing or any other concerns you may have. Coding Level of Care Code ED Steward/Stewardess Second for Melvi Pink
[2022-06-16 09:10] LABS: Rapid Strep A Test Negative (Negative)
[2022-06-16 09:22] LABS: Hematocrit 39.5 % (37.0-47.0); Hemoglobin 12.4 g/dL (11.5-15.3); Mean Corpuscular HGB Conc 31.4 g/dL (30.0-36.0); Mean Corpuscular Volume 92.3 fl (81-99); Mean Platelet Volume 8.8 fL (7.4-10.4); Platelet Count 206 10^3/cmm (130-400); Red Blood Count 4.28 10^6/uL (4.1-5.3); Red Cell Distribution Width 13.2 % (12.1-15.1); White Blood Count 6.8 10^3/uL (4.0-10.0)
[2022-06-16 09:39] LABS: Alanine Aminotransferase 27 U/L (0-33); Albumin Level 3.2 g/dL (3.5-5.2); Alkaline Phosphatase 102 U/L (35-105); Anion Gap 16.3 (5-19); Aspartate Amino Transferase 29 U/L (0-32); Blood Urea Nitrogen 7 mg/dL (6-20); Calcium 9.2 mg/dL (8.5-10.5); Carbon Dioxide 23 mmol/L (22-29); Chloride 97 mmol/L (98-107); Glomerular Filtration Rate 87.4 mL/min (90-130); Glucose 93 mg/dL (65-115); Osmolality Calculated 272 mOsm/kg (285-295); Potassium 4.3 mmol/L (3.5-5.1); Sodium 132 mmol/L (136-145); Total Bilirubin 0.3 mg/dL (0.15-1.2); Total Protein 7.2 g/dL (6.6-8.7)
[2022-06-16 09:50] LABS: Slide Review Slide Review Perform
[2022-06-16 09:51] LABS: Absolute Neutrophil 2.9 10^3/cmm (1.4-6.5); Absolute Segmented Neutrophil 2.5 10/cmm (1.6-7.1); Band Neutrophils Absolute 0.3 10^3/cmm (0.0-1.2); Eosinophils 1 %; Lymphocytes 38 %; Lymphocytes Absolute 3.3 10^3/cmm (1.2-3.4); Monocytes Absolute 0.6 10^3/cmm (0.1-0.6); Platelet Estimate Normal (Normal); Polychromasia 1+; Segmented Neutrophils 37 %; Total Cells Counted 100 (0-100)
[2022-06-16] MEDS: iohexol 350 mg/mL 500 mL Btl (per mL) IV (11:34)
[2022-06-16] MEDS: dexamethasone 10 mg/mL INJ IVP (12:16)
== END 2022-06-16 12:58 | disposition home or self-care (01) ==
PROVIDERS: Emergency Provider Physician Assistant; PCP Nurse Practitioner Family
DX: J03.90 Acute tonsillitis, unspecified (principal)
CPT/HCPCS: 36415; 70491; 80053; 85007; 85025; 87081; 87880; 96374; 99285; J1100; Q9967

== ENCOUNTER 2022-07-31 20:39 | Emergency (ER) | payer MEDICARE, MEDICAID, SELFPAY ==
[2022-07-31 20:42] VITALS: BP 140/87; PULSE 101; RESP 14; TEMP 36.6; O2SAT 97
[2022-08-01] MEDS: ondansetron 4 MG Tablet PO
[2022-08-01] MEDS: ketorolac 30 mg/mL INJ IM (00:01)
--- NOTE | 2022-08-01 00:13 | W.ED.HA ---
HPI - Headache General: Chief Complaint: Headache Stated Complaint: hit head, LIAO, dizzy Time Seen by Provider: 07/31/22 23:05 Source: patient History of Present Illness: 27-year-old female who struck her head on a refrigerator door earlier in the evening. She is experiencing some dizziness, and headache. She is nauseated. She did not lose consciousness. She has a history of headaches. She has a history of developmental delay. MD elicited complaint: headache Onset (ago): hour(s) Onset description: suddenly Location: occipital Severity: moderate Quality & Timing: aching and throbbing Exacerbating factors: none Relieving factors: nothing Associated symptoms: Reports nausea and photophobia; Deny chest pain, confusion, cough, eye pain, fever(s), loss of vision, neck stiffness or vomiting Treatments prior to arrival: acetaminophen Review of Systems Const: Denies: fever(s) Card: Denies: chest pain GI: Reports: nausea; Denies: vomiting Musc: Denies: neck pain Neuro: Denies: confusion PFSH ED PFSH: Medical History Abnormal uterine bleeding (AUB) Acne ADHD, predominantly inattentive type Aftercare following surgery of the genitourinary system Bipolar 1 disorder Huntingtons chorea Insomnia Oppositional defiant disorder of childhood or adolescence Psychotic disorder Surgical History H/O oral surgery Status post hysteroscopic polypectomy 02/04/2021- hysteroscopic polypectomy and curettage via Myosure performed by Dr. Silverman at [facility] Family History Grandmother Diabetes maternal Breast cancer Grandfather Diabetes maternal Denies family history of Colon cancer Ovarian cancer Clotting disorder Bleeding disorder Hypertension Uterine cancer Thyroid disease Stroke Social History Smoking and tobacco status: never smoked Alcohol intake: never Substance/Drug Use: never Current gender identity: Female Physical Exam Const: COMMON NORMALS: no acute distress GENERAL APPEARANCE: cooperative; not ill appearing and not frail appearing HENMT: COMMON NORMALS: normocephalic, atraumatic and Normal external nose present HEAD & SCALP: normocephalic and atraumatic FACE & SINUS: normal facial exam and face symmetric NOSE: Normal external nose present Eye: COMMON NORMALS: Equal, round and reactive pupils present and EOMs intact bilaterally PUPIL: Yes Equal, round and reactive pupils present DIRECT OPHTHALMOSCOPY: Yes photophobia Neck/C-Spine: GENERAL: Yes trachea midline Chest: CHEST: Yes Symmetrical chest wall rise Resp: COMMON NORMALS: normal respiratory effort, No retractions, No use of accessory muscles and clear to auscultation bilaterally AUSCULTATION: clear to auscultation bilaterally Cardio: COMMON NORMALS: regular rate and regular rhythm RATE: regular rate RHYTHM: regular rhythm GI: COMMON NORMALS: Normal to inspection, nondistended, normoactive bowel sounds present Extremity: COMMON NORMALS: no pedal edema Neuro: RICKI COMA SCALE: document GCS findings [place] coma scale eye opening: Spontaneous [place] coma scale verbal response: Orientated [place] coma scale motor response: Obey commands Ricki coma scale total score: 15 CRANIAL NERVES: Yes CN normal except as noted COORDINATION/BALANCE: [id number] test normal SPEECH: speech normal SENSORY EXAM: Yes extremities (intact) COORDINATION: [id number] test normal Psych: COMMON NORMALS: speech normal SPEECH: Yes normal speech Skin: COMMON NORMALS: no rashes or lesions noted GENERAL SKIN EXAM: no rashes or lesions noted Course Vital Signs: Vital signs: Vital Signs Temperature 97.9 F 07/31/22 20:42 Pulse Rate 101 H 07/31/22 20:42 Respiratory Rate 14 07/31/22 20:42 Blood Pressure 140/87 07/31/22 20:42 Pulse Oximetry 97 07/31/22 20:42 Oxygen Delivery Me thod Room Air 07/31/22 20:42 [facility] - Headache Medical Decision Making Patient is hours into her concussion. She is exhibiting no neurological symptoms. She is given an injection of Toradol and oral Zofran. She is feeling improved. We will allow discharge. Without any focal neurologic problems, andno vomiting, positive significant head injury internally are slim, especially given her mechanism of injury. She will not require CT scan. Discharge Plan Discharge Patient Disposition: Home Clinical Impression: Headache Concussion Qualifiers: Encounter type: initial encounter Loss of consciousness presence/duration: without LOC Qualified Code(s): S06.0X0A - Concussion without loss of consciousness, initial encounter Condition: Stable Prescriptions: No Action amantadine HCl 100 mg capsule 100 mg PO BID@, buspirone 5 mg tablet 5 mg PO TID@,, divalproex 250 mg tablet extended release 24 hr 250 mg PO TID@,, Januvia 50 mg tablet 50 mg PO DAILY@0800 Rx Instructions: With breakfast levothyroxine 88 mcg capsule 88 mcg PO DAILY@0700 lithium carbonate 300 mg capsule 300 mg PO TID@,, ondansetron 4 mg film 4 mg PO Q8H PRN (Reason: nausea and vomiting) norgestimate-ethinyl estradiol [Tri-Sprintec (28)] 0.18/0.215/0.25 mg-35 mcg (28) tablet 1 tab PO DAILY@1999 trazodone 100 mg tablet 100 mg PO DAILY fluticasone propionate [Flonase Allergy Relief] 50 mcg/actuation spray,suspension 2 spray intranasal DAILY Rx Instructions: administer into each nostril ketotifen fumarate [Alaway] 0.025 % (0.035 %) drops 1 drp ophthalmic (eye) BID Rx Instructions: administer at least 8 hours apart hydrochlorothiazide 25 mg tablet 25 mg PO DAILY PRN (Reason: fluid retention) triamcinolone acetonide 0.1 % cream 1 applic topical DAILY acetaminophen 500 mg capsule 1,000 mg PO Q6H PRN (Reason: fever or pain) Qty: 60 0RF Chloraseptic Max Sore Throat 1.5-33 % spray,non-aerosol 1 spray mucous membrane DAILY PRN (Reason: sore throat) Qty: 118 0RF Rx Instructions: leave on area for 15 seconds then spit out multivitamin Tablet 1 tab PO DAILY@1999 diphenhydramine HCl [Banophen] 25 mg capsule 25 mg PO BEDTIME@1999 ibuprofen 200 mg Tablet 200 mg PO Q6H PRN (Reason: Pain) quetiapine 300 mg tablet extended release 24 hr 300 mg PO DAILY@1999 melatonin 5 mg tablet 10 mg PO BEDTIME@1999 dicyclomine 20 mg tablet 10 mg PO QID ibuprofen 800 mg tablet 800 mg PO TID PRN (Reason: pain) Qty: 60 0RF Reglan 10 mg tablet 10 mg PO Q6H PRN (Reason: migraine headache) Qty: 20 0RF Discharge Orders: Discharge ED (Routine); Ordered 08/01/22 Ordered By: Kulwinder Alarcon Referrals: Anusha Carlson FNP [Primary Care Provider] - Patient Instructions: Concussion (ED), General Headache (ED) Activity Restrictions/Additional Instructions: Return for repeated episodes of vomiting, worsening headache, vision problems, language problems, weakness, other concerning symptoms. Limit bright lights for the next 24 hours or so, or until symptoms resolve. Coding Level of Care Code ED Pipe Coverer Helper for Melvi Pink
[2022-08-01 00:32] VITALS: BP 140/87; PULSE 101; RESP 14; TEMP 36.6; O2SAT 97
== END 2022-08-01 00:33 | disposition home or self-care (01) ==
PROVIDERS: Emergency Provider Emergency Medicine; PCP Nurse Practitioner Family
DX: S06.0X0A Concussion without loss of consciousness, initial encounter (principal); G10 Huntington's disease; W22.8XXA Striking against or struck by other objects, initial encounter
CPT/HCPCS: 96372; 99284; J1885; Q0162

== ENCOUNTER 2022-10-24 13:18 | Emergency (ER) | payer MEDICARE, MEDICAID, SELFPAY ==
[2022-10-24 13:33] VITALS: BP 122/79; PULSE 101; RESP 14; TEMP 36.7; O2SAT 100; BMI 33.6
[2022-10-24 13:42] LABS: Glucose Point of Care 143 mg/dL (70-110)
--- NOTE | 2022-10-24 14:18 | ECG_ITS ---
[facility] Test Date: 2022-10-24 Pat Name: Melinda Rowell Department: Room: Gender: Female [employer]: : 1995 Requested By: Julien Lemon Order Number: [id number] Rocha MD: Andrés Bernal M.D. Measurements Intervals [place] Rate: 86 P: 49 VA: 151 QRS: 81 QRSD: 94 T: 51 QT: 365 QTc: 438 Interpretive Statements SINUS RHYTHM LOW QRS VOLTAGE IN PRECORDIAL LEADS [QRS DEFLECTION < 1.0 mV IN CHEST LEADS] Compared to ECG 06/05/2022 13:40:42 No significant changes Electronically Signed On 10-24-2022 21:02:53 CDT by Andrés Bernal M.D. [id number]
[2022-10-24 14:49] LABS: Basophils % 0.3 %; Eosinophils % 0.5 %; Hematocrit 36.3 % (37.0-47.0); Hemoglobin 11.8 g/dL (11.5-15.3); Lymphocytes # 2.1 10^3/uL (0.8-4.8); Lymphocytes % 26.5 %; Mean Corpuscular HGB Conc 32.5 g/dL (30.0-36.0); Mean Corpuscular Hemoglobin 29.8 pg (28.0-34.0); Mean Corpuscular Volume 91.7 fl (81-99); Monocytes # 0.6 10^3/uL (0.2-0.9); Monocytes % 7.9 %; Neutrophils # 5.13 10^3/uL (1.8-7.7); Neutrophils % 64.3 %; Nucleated Red Blood Cells % 0 %; Platelet Count 194 10^3/cmm (130-400); Red Blood Count 3.96 10^6/uL (4.1-5.3); Red Cell Distribution Width 12.9 % (12.1-15.1)
[2022-10-24 14:53] LABS: Add Urine Microscopic? NO; Charge for UA Resulting for Rev
[2022-10-24 14:56] LABS: Bilirubin Urine Neg (Negative); Blood Urine Neg (Negative); Glucose Urine UA Norm (Normal); Ketones Urine Negative (Negative); Leukocyte Esterase Urine Negative (Negative); Nitrate Urine Negative (Negative); Protein Urine Neg (Negative); Urine Appearance Clear (CLEAR); Urine Color Colorless (Yellow); Urobilinogen Urine Norm (Negative); pH Urine 7 (5-7)
--- NOTE | 2022-10-24 14:58 | W.ED.DIZZY ---
HPI - Dizziness General: Chief Complaint: Dizziness Stated Complaint: Weakness caregiver says low blood sugar an got sic Time Seen by Provider: 10/24/22 14:17 History of Present Illness: HPI Narrative: Patient is a 27-year-old female comes to the ED with dizziness, nausea and vomiting. Patient states she woke up this morning and she was not feeling all that great. She tried to eat something for breakfast that she had an episode of emesis after. [place] the [place] and was out in the heat for the day. She was feeling a little better and did eat a little bit of lunch and kept it down.. She then had a drink of water in the early afternoon and then it made her very nauseous and she felt dizzy. She checked her blood sugar and it was 89. Here in the ED she complains of having dizziness that she describes as room spinning that occurs when she is laying down or if she is standing up. She endorses nausea and some lower back pain as well. Denies any head injuries, fevers, chills, bladder or bowel symptoms. Associated symptoms: Reports nausea; Denies chest pain, chills, headache(s), nasal congestion, palpitations or vomiting Associated neuro symptoms: Deny numbness in extremities Review of Systems Const: Denies: fever(s), chills or fatigue Eyes: Denies: change in vision or eye discomfort ENMT: Denies: throat pain, odynophagia, nasal discharge or nasal congestion Card: Denies: chest pain, palpitations, edema, swelling of feet/ankles, dyspnea on exertion or orthopnea Resp: Denies: dyspnea, productive cough or non-productive cough GI: Reports: nausea; Denies: abdominal pain, vomiting, diarrhea, constipation or hematochezia : Denies: flank pain, dysuria or hematuria Musc: Reports: back pain; Denies: neck pain or extremity swelling Skin/Breast: Denies: rash or new lesions Neuro: Reports: dizziness; Denies: headache(s), numbness in extremities or weakness in extremities PFS ED PFSH: Medical History Abnormal uterine bleeding (AUB) Acne ADHD, predominantly inattentive type Aftercare following surgery of the genitourinary system Bipolar 1 disorder Huntingtons chorea Insomnia Oppositional defiant disorder of childhood or adolescence Psychotic disorder Surgical History H/O oral surgery Status post hysteroscopic polypectomy 02/04/2021- hysteroscopic polypectomy and curettage via Myosure performed by Dr. Silverman at [facility] Family History Grandmother Diabetes maternal Breast cancer Grandfather Diabetes maternal Denies family history of Colon cancer Ovarian cancer Clotting disorder Bleeding disorder Hypertension Uterine cancer Thyroid disease Stroke Social History Smoking and tobacco status: never smoked Alcohol intake: never Substance/Drug Use: never Current gender identity: Female Physical Exam Const: COMMON NORMALS: no acute distress, patient oriented x3, healthy appearing and alert HENMT: COMMON NORMALS: normocephalic HEAD & SCALP: normocephalic MOUTH: Normal oral and palatal mucosa present THROAT: posterior oropharynx normal and uvula midline Neck/C-Spine: COMMON NORMALS: supple GENERAL: Yes normal visual inspection Resp: COMMON NORMALS: normal respiratory effort, No retractions, No use of accessory muscles and clear to auscultation bilaterally AUSCULTATION: clear to auscultation bilaterally Cardio: COMMON NORMALS: regular rate, regular rhythm, S1 normal heart sound present, S2 normal heart sound present, No gallops present (Cardio), No clicks present (Cardio), No murmurs present (Cardio) and Peripheral pulses 2+ throughout RATE: regular rate RHYTHM: regular rhythm HEART SOUNDS: S1 normal heart sound present and S2 normal heart sound present PERIPHERAL PULSES: Peripheral pulses 2+ throughout GI: COMMON NORMALS: Normal to inspection, nondistended, normoactive bowel sounds present, Soft to palpation, non-tender and no masses PALPATION: Yes Soft to palpation : COMMON NORMALS: Yes no CVA tenderness BLADDER/KIDNEY EXAM: Yes no CVA tenderness Back/Pelvis: COMMON NORMALS: no CVA tenderness Extremity: COMMON NORMALS: normal to inspection Neuro: COMMON NORMALS: patient oriented x3 SENSORIUM/ORIENTATION: Yes alert GAIT: Yes Normal gait present Skin: GENERAL SKIN EXAM: dry skin Course Vital Signs: Vital signs: Vital Signs Temperature 98.1 F 10/24/22 13:33 Pulse Rate 86 10/24/22 15:14 Respiratory Rate 14 10/24/22 15:14 Blood Pressure 136/83 10/24/22 15:14 Pulse Oximetry 100 10/24/22 13:33 Oxygen Delivery Me thod Room Air 10/24/22 13:33 MDM - Dizziness Medical Decision Making Patient is a 27-year-old female comes to the ED with dizziness, nausea and vomiting. Patient states she woke up this morning and she was not feeling all that great. She tried to eat something for breakfast that she had an episode of emesis after. She then [place] to the river [place] the day and was out in the heat for the day. She was feeling a little better and did eat a little bit of lunch and kept it down.. She then had a drink of water in the early afternoon and then it made her very nauseous and she felt dizzy. She checked her blood sugar and it was 89. Here in the ED she complains of having dizziness that she describes as room spinning that occurs when she is laying down or if she is standing up. She endorses nausea and some lower back pain as well. Denies any head injuries, fevers, chills, bladder or bowel symptoms. Vitals are stable. Exam of patient is benign she appears nontoxic in no acute distress or pain. EKG showed normal sinus rhythm with no other acute findings noted CBC, CMP were all unremarkable. hCG negative and UA was clear. Patient was given a liter of IV fluids and some Zofran and her symptoms improved greatly. She said she felt a lot better. Her symptoms are likely due to heat exhaustion. She was discharged home with a prescription for Zofran and told to go home and rest drink plenty of fluids today. Follow-up with PCP in the next week for reevaluation. Return ED precautions given. Patient understood and agreed with plan. Lab Data I reviewed the patient's lab results. 10/24/22 14:30 10/24/22 14:30 Laboratory Results WBC 8.0 10^3/uL (4.0-10.0) 10/24/22 14:30 RBC 3.96 10^6/uL (4.1-5.3) L 10/24/22 14:30 Hgb 11.8 g/dL (11.5-15.3) 10/24/22 14:30 Hct 36.3 % (37.0-47.0) L 10/24/22 14:30 MCV 91.7 fl (81-99) 10/24/22 14:30 MCH 29.8 pg (28.0-34.0) 10/24/22 14:30 MCHC 32.5 g/dL (30.0-36.0) 10/24/22 14:30 RDW 12.9 % (12.1-15.1) 10/24/22 14:30 Plt Count 194 10^3/cmm (130-400) 10/24/22 14:30 MPV 10.0 fL (7.4-10.4) 10/24/22 14:30 Neut % (Auto) 64.3 % 10/24/22 14:30 Lymph % (Auto) 26.5 % 10/24/22 14:30 [place] % (Auto) 7.9 % 10/24/22 14:30 Eos % (Auto) 0.5 % 10/24/22 14:30 Baso % (Auto) 0.3 % 10/24/22 14:30 Neut # (Auto) 5.13 10^3/uL (1.8-7.7) 10/24/22 14:30 Lymph # (Auto) 2.1 10^3/uL (0.8-4.8) 10/24/22 14:30 [place] # (Auto) 0.6 10^3/uL (0.2-0.9) 10/24/22 14:30 Eos # (Auto) 0.0 10^3/uL (0.0-0.8) 10/24/22 14:30 Baso # (Auto) 0.0 10^3/uL (0.0-0.1) 10/24/22 14:30 Nucleated RBC % (auto) 0 % 10/24/22 14:30 Nucleated RBCs # 0.0 /100WBC 10/24/22 14:30 Sodium 136 mmol/L (136-145) 10/24/22 14:30 Potassium 4.0 mmol/L (3.5-5.1) 10/24/22 14:30 Chloride 101 mmol/L (98-107) 10/24/22 14:30 Carbon Dioxide 26 mmol/L (22-29) 10/24/22 14:30 Anion Gap 13.0 (5-19) 10/24/22 14:30 BUN 8 mg/dL (6-20) 10/24/22 14:30 Creatinine 0.8 mg/dL (0.5-0.9) 10/24/22 14:30 GFR Calculation 87.4 mL/min (90-130) L 10/24/22 14:30 Glucose 101 mg/dL (65-115) 10/24/22 14:30 POC Glucose 143 mg/dL (70-110) H 10/24/22 13:39 Calculated Osmolality 280 mOsm/kg (285-295) L 10/24/22 14:30 Calcium 9.3 mg/dL (8.5-10.5) 10/24/22 14:30 Total Bilirubin 0.2 mg/dL (0.15-1.2) 10/24/22 14:30 AST 10 U/L (0-32) 10/24/22 14:30 ALT 10 U/L (0-33) 10/24/22 14:30 Alkaline Phosphatase 64 U/L (35-105) 10/24/22 14:30 Total Protein 6.7 g/dL (6.6-8.7) 10/24/22 14:30 Albumin 3.8 g/dL (3.5-5.2) 10/24/22 14:30 Globulin 2.9 g/dL (1.3-4.6) 10/24/22 14:30 HCG, Qual Negative (Negative) 10/24/22 14:30 Urine Color Colorless (Yellow) 10/24/22 14:40 Urine Appearance Clear (CLEAR) 10/24/22 14:40 Urine pH 7 (5-7) 10/24/22 14:40 Ur Specific [place] 1.000 (1.005-1.030) L 10/24/22 14:40 Urine Protein Neg (Negative) 10/24/22 14:40 Urine Glucose (UA) Norm (Normal) 10/24/22 14:40 Urine Ketones Negative (Negative) 10/24/22 14:40 Urine Blood Neg (Negative) 10/24/22 14:40 Urine Nitrate Negative (Negative) 10/24/22 14:40 Urine Bilirubin Neg (Negative) 10/24/22 14:40 Urine Urobilinogen Norm mg/dL (Negative) 10/24/22 14:40 Ur Leukocyte Esterase Negative (Negative) 10/24/22 14:40 EKG Data EKG 1: EKG interpretation date: 10/24/22 Interpretation: Sinus rhythm, 86 bpm, no ST segment elevation or depression seen. Discharge Plan Discharge Patient Disposition: Home Clinical Impression: Heat exhaustion Qualifiers: Encounter type: initial encounter Qualified Code(s): T67.5XXA - Heat exhaustion, unspecified, initial encounter Condition: Stable Prescriptions: New ondansetron 4 mg tablet,disintegrating 4 mg PO Q8H PRN (Reason: nausea and vomiting) Qty: 15 0RF No Action amantadine HCl 100 mg capsule 100 mg PO BID@, buspirone 5 mg tablet 5 mg PO TID@,, divalproex 250 mg tablet extended release 24 hr 250 mg PO TID@08,, Januvia 50 mg tablet 50 mg PO DAILY@0800 Rx Instructions: With breakfast levothyroxine 88 mcg capsule 88 mcg PO DAILY@0700 lithium carbonate 300 mg capsule 300 mg PO TID@,, ondansetron 4 mg film 4 mg PO Q8H PRN (Reason: nausea and vomiting) norgestimate-ethinyl estradiol [Tri-Sprintec (28)] 0.18/0.215/0.25 mg-35 mcg (28) tablet 1 tab PO DAILY@1999 trazodone 100 mg tablet 100 mg PO DAILY fluticasone propionate [Flonase Allergy Relief] 50 mcg/actuation spray,suspension 2 spray intranasal DAILY Rx Instructions: administer into each nostril ketotifen fumarate [Alaway] 0.025 % (0.035 %) drops 1 drp ophthalmic (eye) BID Rx Instructions: administer at least 8 hours apart hydrochlorothiazide 25 mg tablet 25 mg PO DAILY PRN (Reason: fluid retention) triamcinolone acetonide 0.1 % cream 1 applic topical DAILY acetaminophen 500 mg capsule 1,000 mg PO Q6H PRN (Reason: fever or pain) Qty: 60 0RF Chloraseptic Max Sore Throat 1.5-33 % spray,non-aerosol 1 spray mucous membrane DAILY PRN (Reason: sore throat) Qty: 118 0RF Rx Instructions: leave on area for 15 seconds then spit out multivitamin Tablet 1 tab PO DAILY@1999 diphenhydramine HCl [Banophen] 25 mg capsule 25 mg PO BEDTIME@1999 ibuprofen 200 mg Tablet 200 mg PO Q6H PRN (Reason: Pain) quetiapine 300 mg tablet extended release 24 hr 300 mg PO DAILY@1999 melatonin 5 mg tablet 10 mg PO BEDTIME@1999 dicyclomine 20 mg tablet 10 mg PO QID ibuprofen 800 mg tablet 800 mg PO TID PRN (Reason: pain) Qty: 60 0RF Reglan 10 mg tablet 10 mg PO Q6H PRN (Reason: migraine headache) Qty: 20 0RF Discharge Orders: Discharge ED (Routine); Ordered 10/24/22 Ordered By: Julien Lemon Referrals: Anusha Carlson FNP [Primary Care Provider] - Discharge Diet: Advance as tolerated Discharge Activity: Increase activity as tolerated Patient Instructions: Heat Exhaustion (ED) Activity Restrictions/Additional Instructions: Follow-up with medical provider as directed in the next 5 to 7 days for reevaluation. Rest and drink plenty of fluids. Take medications as prescribed. Return to the ER or your medical provider if condition worsens. Please read and understand discharge instructions. Thank you for choosing [facility] for your healthcare needs today. Please realize this is an emergency room and that we are providing you with a medical screening exam and this may not be complete and all inclusive of all the testing and or work up that you may need to determine your ailment or severity of your illness. It is very important that you follow up as instructed or that you return to the Emergency Department should you have concerns or if your condition changes or worsens in any way. Coding Level of Care Code ED Fire Management Officer for Melvi Pink
[2022-10-24 15:09] LABS: HCG, Serum Qual Negative (Negative)
[2022-10-24] MEDS: ondansetron 2 mg/ML SDV 2 mL 4 MG IVP (15:09)
[2022-10-24] MEDS: sodium chloride 0.9% 1,000 ML 999 ML IV (15:10)
[2022-10-24 15:14] VITALS: BP 136/83; PULSE 86; RESP 14
[2022-10-24 15:18] LABS: Alanine Aminotransferase 10 U/L (0-33); Albumin Level 3.8 g/dL (3.5-5.2); Alkaline Phosphatase 64 U/L (35-105); Aspartate Amino Transferase 10 U/L (0-32); Blood Urea Nitrogen 8 mg/dL (6-20); Calcium 9.3 mg/dL (8.5-10.5); Carbon Dioxide 26 mmol/L (22-29); Chloride 101 mmol/L (98-107); Globulin 2.9 g/dL (1.3-4.6); Glomerular Filtration Rate 87.4 mL/min (90-130); Glucose 101 mg/dL (65-115); Osmolality Calculated 280 mOsm/kg (285-295); Sodium 136 mmol/L (136-145); Total Bilirubin 0.2 mg/dL (0.15-1.2); Total Protein 6.7 g/dL (6.6-8.7)
== END 2022-10-24 16:14 | disposition home or self-care (01) ==
PROVIDERS: Emergency Provider Physician Assistant; PCP Nurse Practitioner Family
DX: T67.5XXA Heat exhaustion, unspecified, initial encounter (principal); X30.XXXA Exposure to excessive natural heat, initial encounter
CPT/HCPCS: 36416; 80053; 81003; 82962; 84703; 85025; 93005; 96374; 99284; J2405; J7030

== ENCOUNTER 2023-11-07 01:07 | Emergency (ER) | payer MEDICARE, MEDICAID, SELFPAY ==
[2023-11-07 01:13] VITALS: BP 123/84; PULSE 100; RESP 17; TEMP 36.5; O2SAT 96; BMI 36.0
[2023-11-07 01:17] VITALS: BP 132/81; RESP 18; O2SAT 98
[2023-11-07 01:20] LABS: Glucose Point of Care 213 mg/dL (70-110)
[2023-11-07 02:00] VITALS: BP 141/81; PULSE 97; RESP 16; O2SAT 99
[2023-11-07] MEDS: sodium chloride 0.9% 1,000 ML 999 ML IV (02:57)
[2023-11-07] MEDS: ondansetron 2 mg/ML SDV 2 mL 4 MG IVP (02:59)
[2023-11-07 03:04] LABS: Basophils % 0.2 %; Eosinophils % 0.2 %; Hematocrit 39.6 % (36-47); Lymphocytes # 1.9 10^3/uL (0.8-4.8); Lymphocytes % 17.3 %; Mean Corpuscular HGB Conc 32.8 g/dL (30-55); Mean Corpuscular Hemoglobin 30.1 pg (27-33); Mean Corpuscular Volume 91.7 fl (85-98); Monocytes # 0.7 10^3/uL (0.2-0.9); Monocytes % 6.5 %; Neutrophils # 8.09 10^3/uL (1.8-7.7); Neutrophils % 75.4 %; Nucleated Red Blood Cells % 0 %; Platelet Count 153 10^3/cmm (157-399); Red Blood Count 4.32 10^6/uL (3.85-5.65); Red Cell Distribution Width 12.6 % (12.1-15.1); White Blood Count 10.72 10^3/uL (3.29-11.43)
[2023-11-07 03:15] LABS: HCG, Serum Qual Negative (Negative)
[2023-11-07 03:31] LABS: Alanine Aminotransferase 11 U/L (0-33); Albumin Level 3.5 g/dL (3.5-5.2); Alkaline Phosphatase 67 U/L (35-105); Anion Gap 16.1 (5-19); Aspartate Amino Transferase 11 U/L (0-32); Blood Urea Nitrogen 9 mg/dL (6-20); Calcium 8.8 mg/dL (8.5-10.5); Carbon Dioxide 22 mmol/L (22-29); Chloride 103 mmol/L (98-107); Creatinine Clr Calc Pharmacy 159.0811; Globulin 2.9 g/dL (1.3-4.6); Glomerular Filtration Rate 120.8 mL/min (90-130); Glucose 208 mg/dL (65-115); Osmolality Calculated 289 mOsm/kg (285-295); Potassium 4.1 mmol/L (3.5-5.1); Sodium 137 mmol/L (136-145); Total Bilirubin 0.2 mg/dL (0.15-1.2); Total Protein 6.4 g/dL (6.6-8.7)
[2023-11-07 03:57] LABS: Add Urine Microscopic? YES; Bacteria Urine 3+ /hpf; Bilirubin Urine Neg (Negative); Blood Urine Neg (Negative); Glucose Urine UA 1+ (Normal); Ketones Urine Negative (Negative); Leukocyte Esterase Urine 2+ (Negative); Mucus Urine TRACE /hpf; Nitrate Urine Negative (Negative); Protein Urine Neg (Negative); RBC Urine 0-4 /hpf (0-2); Specific Gravity, Urine 1.015 (1.005-1.030); Squamous Epithelial Cell Urine 25-40 /hpf (0-5); Urine Appearance Cloudy (CLEAR); Urine Color Dark Yellow (Yellow); Urobilinogen Urine Neg (Negative); WBC Urine 15-25 /hpf (0-5); pH Urine 6 (5-7)
[2023-11-07 04:26] VITALS: BP 115/80; RESP 18; O2SAT 97
--- NOTE | 2023-11-07 04:58 | W.ED.NAVMDI ---
HPI - Nausea/Vomiting/Diarrhea General: Chief complaint: Nausea/Vomiting/Diarrhea Stated complaint: Diabetic, blood sugar high, throwing up Time Seen by Provider: 11/07/23 02:56 History of Present Illness: 28-year-old female with a history of diabetes. She presents with vomiting and generalized belly pain. The patient's caregiver notes that there was some seafood gumbo in the crockpot that she had eaten prior, and may have gotten food poisoning from that. No one else had eaten that food. No fever. Multiple episodes of vomiting. No diarrhea. Generalized belly pain. On my interview, she is actively vomiting. PFSH ED PFSH: Medical History Abnormal uterine bleeding (AUB) Acne ADHD, predominantly inattentive type Aftercare following surgery of the genitourinary system Bipolar 1 disorder Huntingtons chorea Insomnia Oppositional defiant disorder of childhood or adolescence Psychotic disorder Surgical History H/O oral surgery Status post hysteroscopic polypectomy 02/04/2021- hysteroscopic polypectomy and curettage via Myosure performed by Dr. Silverman at [facility] Family History Grandmother Diabetes maternal Breast cancer Grandfather Diabetes maternal Denies family history of Colon cancer Ovarian cancer Clotting disorder Bleeding disorder Hypertension Uterine cancer Thyroid disease Stroke Social History Smoking and tobacco/nicotine status: never used tobacco/nicotine Alcohol intake: never Substance/Drug Use: never Current gender identity: Female Physical Exam Const: GENERAL APPEARANCE: cooperative and ill appearing (Mildly); not frail appearing HENMT: COMMON NORMALS: normocephalic, atraumatic and Normal external nose present HEAD & SCALP: normocephalic and atraumatic FACE & SINUS: normal facial exam and face symmetric NOSE: Normal external nose present Eye: COMMON NORMALS: Equal, round and reactive pupils present and EOMs intact bilaterally PUPIL: Yes Equal, round and reactive pupils present Neck/C-Spine: GENERAL: Yes trachea midline Chest: CHEST: Yes Symmetrical chest wall rise Resp: COMMON NORMALS: normal respiratory effort, No retractions, No use of accessory muscles and clear to auscultation bilaterally AUSCULTATION: clear to auscultation bilaterally Cardio: COMMON NORMALS: regular rate and regular rhythm RATE: regular rate RHYTHM: regular rhythm GI: COMMON NORMALS: Normal to inspection, nondistended, normoactive bowel sounds present Extremity: COMMON NORMALS: no pedal edema Neuro: RICKI COMA SCALE: document GCS findings [place] coma scale eye opening: Spontaneous Ricki coma scale verbal response: Orientated [place] coma scale motor response: [place] commands Ricki coma scale total score: 15 SENSORY EXAM: Yes extremities (intact) Psych: COMMON NORMALS: speech normal SPEECH: Yes normal speech Skin: COMMON NORMALS: no rashes or lesions noted GENERAL SKIN EXAM: no rashes or lesions noted Course Vital Signs: Vital signs: Vital Signs Temperature 97.7 F 11/07/23 01:13 Pulse Rate 97 11/07/23 02:00 Respiratory Rate 18 11/07/23 04:26 Blood Pressure 115/80 11/07/23 04:26 Pulse Oximetry 97 11/07/23 04:26 Oxygen Delivery Me thod Room Air 11/07/23 01:17 MDM - Nausea/Vomiting/Diarrhea Medical Decision Making 28-year-old female with multiple episodes of vomiting. No fever or diarrhea. CBC shows a platelet count of 153. Sugar is down to 208, from 300 prior to arrival. CRP is 12. Urinalysis is contaminated. Vomiting is controlled after IV fluid, Zofran here. She will be allowed discharge home. Gastroenteritis versus food poisoning. Warning signs for return given. Scheduled Zofran for the next 24 hours and liquids. Lab Data 11/07/23 02:45 11/07/23 02:45 Laboratory Results WBC 10.72 10^3/uL (3.29-11.43) 11/07/23 02:45 RBC 4.32 10^6/uL (3.85-5.65) 11/07/23 02:45 Hgb 13.00 g/dL (11.27-16.99) 11/07/23 02:45 Hct 39.6 % (36-47) 11/07/23 02:45 MCV 91.7 fl (85-98) 11/07/23 02:45 MCH 30.1 pg (27-33) 11/07/23 02:45 MCHC 32.8 g/dL (30-55) 11/07/23 02:45 RDW 12.6 % (12.1-15.1) 11/07/23 02:45 Plt Count 153 10^3/cmm (157-399) L 11/07/23 02:45 MPV 10.0 fL (7.4-10.4) 11/07/23 02:45 Neut % (Auto) 75.4 % 11/07/23 02:45 Lymph % (Auto) 17.3 % 11/07/23 02:45 [place] % (Auto) 6.5 % 11/07/23 02:45 Eos % (Auto) 0.2 % 11/07/23 02:45 Baso % (Auto) 0.2 % 11/07/23 02:45 Neut # (Auto) 8.09 10^3/uL (1.8-7.7) H 11/07/23 02:45 Lymph # (Auto) 1.9 10^3/uL (0.8-4.8) 11/07/23 02:45 [place] # (Auto) 0.7 10^3/uL (0.2-0.9) 11/07/23 02:45 Eos # (Auto) 0.0 10^3/uL (0.0-0.8) 11/07/23 02:45 Baso # (Auto) 0.0 10^3/uL (0.0-0.1) 11/07/23 02:45 Nucleated RBC % (auto) 0 % 11/07/23 02:45 Nucleated RBCs # 0.0 /100WBC 11/07/23 02:45 Sodium 137 mmol/L (136-145) 11/07/23 02:45 Potassium 4.1 mmol/L (3.5-5.1) 11/07/23 02:45 Chloride 103 mmol/L (98-107) 11/07/23 02:45 Carbon Dioxide 22 mmol/L (22-29) 11/07/23 02:45 Anion Gap 16.1 (5-19) 11/07/23 02:45 BUN 9 mg/dL (6-20) 11/07/23 02:45 Creatinine 0.6 mg/dL (0.5-0.9) 11/07/23 02:45 GFR Calculation 120.8 mL/min (90-130) 11/07/23 02:45 Glucose 208 mg/dL (65-115) H 11/07/23 02:45 POC Glucose 213 mg/dL (70-110) H 11/07/23 01:18 Calculated Osmolality 289 mOsm/kg (285-295) 11/07/23 02:45 Calcium 8.8 mg/dL (8.5-10.5) 11/07/23 02:45 Total Bilirubin 0.2 mg/dL (0.15-1.2) 11/07/23 02:45 AST 11 U/L (0-32) 11/07/23 02:45 ALT 11 U/L (0-33) 11/07/23 02:45 Alkaline Phosphatase 67 U/L (35-105) 11/07/23 02:45 C-Reactive Protein 12.0 mg/L (0.0-4.9) H 11/07/23 02:45 Total Protein 6.4 g/dL (6.6-8.7) L 11/07/23 02:45 Albumin 3.5 g/dL (3.5-5.2) 11/07/23 02:45 Globulin 2.9 g/dL (1.3-4.6) 11/07/23 02:45 HCG, Qual Negative (Negative) 11/07/23 02:45 Urine Color Dark yellow (Yellow) A 11/07/23 03:44 Urine Appearance Cloudy (CLEAR) A 11/07/23 03:44 Urine pH 6 (5-7) 11/07/23 03:44 Ur Specific [place] 1.015 (1.005-1.030) 11/07/23 03:44 Urine Protein Neg (Negative) 11/07/23 03:44 Urine Glucose (UA) 1+ (Normal) H 11/07/23 03:44 Urine Ketones Negative (Negative) 11/07/23 03:44 Urine Blood Neg (Negative) 11/07/23 03:44 Urine Nitrate Negative (Negative) 11/07/23 03:44 Urine Bilirubin Neg (Negative) 11/07/23 03:44 Urine Urobilinogen Neg mg/dL (Negative) 11/07/23 03:44 Ur Leukocyte Esterase 2+ (Negative) H 11/07/23 03:44 Urine RBC 0-4 /hpf (0-2) H 11/07/23 03:44 Urine WBC 15-25 /hpf (0-5) H 11/07/23 03:44 Ur Squamous Epith Cells 25-40 /hpf (0-5) H 11/07/23 03:44 Amorphous Sediment Not Reportable 11/07/23 03:44 Urine Bacteria 3+ /hpf (NONE) H 11/07/23 03:44 Urine Mucus Trace /hpf 11/07/23 03:44 No radiology studies performed this visit Discharge Plan Discharge Patient Disposition: Home Clinical Impression: Gastroenteritis Condition: Stable Prescriptions: Continued ondansetron 4 mg tablet,disintegrating 4 mg PO Q8H PRN (Reason: nausea and vomiting) Qty: 15 0RF Discontinued ondansetron 4 mg film 4 mg PO Q8H PRN (Reason: nausea and vomiting) No Action amantadine HCl 100 mg capsule 100 mg PO BID@08,20 buspirone 5 mg tablet 5 mg PO TID@08,, divalproex 250 mg tablet extended release 24 hr 250 mg PO TID@08,, Januvia 50 mg tablet 50 mg PO DAILY@0800 Rx Instructions: With breakfast levothyroxine 88 mcg capsule 88 mcg PO DAILY@0700 lithium carbonate 300 mg capsule 300 mg PO TID@08,, norgestimate-ethinyl estradiol [Tri-Sprintec (28)] 0.18/0.215/0.25 mg-35 mcg (28) tablet 1 tab PO DAILY@2000 trazodone 100 mg tablet 100 mg PO DAILY fluticasone propionate [Flonase Allergy Relief] 50 mcg/actuation spray,suspension 2 spray intranasal DAILY Rx Instructions: administer into each nostril ketotifen fumarate [Alaway] 0.025 % (0.035 %) drops 1 drp ophthalmic (eye) BID Rx Instructions: administer at least 8 hours apart hydrochlorothiazide 25 mg tablet 25 mg PO DAILY PRN (Reason: fluid retention) triamcinolone acetonide 0.1 % cream 1 applic topical DAILY acetaminophen 500 mg capsule 1,000 mg PO Q6H PRN (Reason: fever or pain) Qty: 60 0RF Chloraseptic Max Sore Throat 1.5-33 % spray,non-aerosol 1 spray mucous membrane DAILY PRN (Reason: sore throat) Qty: 118 0RF Rx Instructions: leave on area for 15 seconds then spit out multivitamin Tablet 1 tab PO DAILY@1999 diphenhydramine HCl [Banophen] 25 mg capsule 25 mg PO BEDTIME@1999 ibuprofen 200 mg Tablet 200 mg PO Q6H PRN (Reason: Pain) quetiapine 300 mg tablet extended release 24 hr 300 mg PO DAILY@1999 melatonin 5 mg tablet 10 mg PO BEDTIME@1999 dicyclomine 20 mg tablet 10 mg PO QID ibuprofen 800 mg tablet 800 mg PO TID PRN (Reason: pain) Qty: 60 0RF Reglan 10 mg tablet 10 mg PO Q6H PRN (Reason: migraine headache) Qty: 20 0RF Discharge Orders: Discharge ED (Routine); Ordered 11/07/23 Ordered By: Kulwinder Alarcon Referrals: Anusha Carlson FNP [Primary Care Provider] - 1-3 days Patient Instructions: Gastroenteritis (ED), Opioid Safety, Pain Management Activity Restrictions/Additional Instructions: Follow a liquid diet for the next 24 hours. Take nausea medication prescribed scheduled whether nauseated or not for the next 24 hours, then as needed. Return for fever, vomiting liquids or medications despite treatment, other concerning symptoms. Coding Level of Care Code ED Raisin Separator Operator for Melvi Pink
== END 2023-11-07 04:36 | disposition home or self-care (01) ==
PROVIDERS: Emergency Provider Emergency Medicine; PCP Nurse Practitioner Family
DX: K52.9 Noninfective gastroenteritis and colitis, unspecified (principal)
CPT/HCPCS: 36416; 80053; 81001; 82962; 84703; 85025; 86140; 96374; 99284; J2405; J7030

== ENCOUNTER → 2024-06-07 13:29 | Outpatient (BNVA) | payer MEDICARE, MEDICAID, SELFPAY | PROVIDERS: PCP Nurse Practitioner Family; Visit Provider Podiatrist Foot & Ankle Surgery | DX: E11.8 Type 2 diabetes mellitus with unspecified complications (principal); L84 Corns and callosities | CPT/HCPCS: 99203 ==

== ENCOUNTER 2024-06-11 10:00 | Outpatient (CLI) | payer MEDICARE, MEDICAID, SELFPAY | END 2024-06-11 10:01 | disposition home or self-care (01) | LOC: SLEEP 10:03 | PROVIDERS: PCP Nurse Practitioner Family; Visit Provider Nurse Practitioner Family | DX: G47.10 Hypersomnia, unspecified (principal) | CPT/HCPCS: G0399 ==

== ENCOUNTER → 2024-07-05 13:32 | Outpatient (BNVA) | payer MEDICARE, MEDICAID, SELFPAY | PROVIDERS: PCP Nurse Practitioner Family; Visit Provider Podiatrist Foot & Ankle Surgery | DX: E11.8 Type 2 diabetes mellitus with unspecified complications (principal); L84 Corns and callosities | CPT/HCPCS: 99213 ==